=== PATIENT | male | born 1955 | race Caucasian/White ===

== ENCOUNTER 2016-10-27 18:39 | Emergency (ER) | payer OTHER ==
[~2016-10-27] VITALS: Ht 182.9 cm; Wt 99.8 kg
[~2016-10-27 18:39] MED LIST: ASPI1TAB17 PO; GLUCOSAMINE 1500 MG PO; LISI20TA PO; LOVAZA 1 GM PO; NAPR-243 PO; OXYC-12 PO
[2016-10-27] MEDS ORDERED: ATOR20TA66 (20:04)
[2016-10-27] MEDS ORDERED: METO-333 (20:04)
--- NOTE | 2016-10-27 20:05 | ED GI ---
General Chief Complaint: Abdominal/GI Problems Stated Complaint: CONSTIPATED,HEMROID ISSUES Nursing Triage Note: PT TO ED 7, REPORTS HE BELIEVES HE'S CONSTIPATED ET HIS HEMORRHOIDS ARE "LEAKING". STATES HIS LAST BM WAS YESTERDAY BUT SINCE HAS HAD "LEAKING". REPORTS SIMILAR EVENT LAST FALL ET WAS TOLD BY HIS PCP IT WAS R/T HEMORRHOIDS. NO OTHER C/O VOICED Sepsis Screen: No Definite Risk Source of Information: Patient Exam Limitations: No Limitations History of Present Illness Time Seen By Provider: 20:03 Initial Comments To ER with reports of fecal incontinence that began this morning. He's had or diapers today due to leakage of liquid bowel. He has suprapubic abdominal pain and a bit of rectal pain and pressure. Has a history of hemorrhoids and he believes these are "leaking". Also states that he feels the need to urinate but is unable to do so if he is sitting down. He must stand up or to urinate. He's had no fevers or chills. He does have nausea but no vomiting. Timing/Duration: 12-24 Hours Severity/Quality: Moderate Location: Suprapubic Radiation: No Radiation Activities at Onset: None Associated Symptoms: Denies Symptoms Allergies and Home Medications Allergies Coded Allergies: Tetanus (Verified Allergy, Unknown, 08/26/07) Home Medications Atorvastatin Calcium 20 Mg Tablet, #90 (Reported) Lisinopril 20 Mg Tablet, 20 MG PO DAILY, (Reported) Metoprolol Tartrate 25 Mg Tablet, #60 (Reported) Naproxen 500 Mg Tablet, 500 MG PO BID, (Reported) Review of Systems Constitutional: see HPI EENTM: No Symptoms Reported Respiratory: No Symptoms Reported Cardiovascular: No Symptoms Reported Gastrointestinal: See HPI, Abdominal Pain, Diarrhea, Denies Nausea Genitourinary: See HPI Musculoskeletal: no symptoms reported Skin: no symptoms reported Psychiatric/Neurological: No Symptoms Reported Past Ifbqske-Spmzdu-Ghcyuy Hx Patient Social History Alcohol Use: Denies Use Recreational Drug Use: No Smoking Status: Never a Smoker 2nd Hand Smoke Exposure: No Recent Foreign Travel: No Contact w/Someone Who Travel: No Recent Infectious Disease Expo: No Recent Hopitalizations: No Surgeries HX Surgeries: Yes (BILATERAL TOTAL KNEE REPLACEMENT) Surgeries: Orthopedic Respiratory Hx Respiratory Disorders: No Cardiovascular Hx Cardiac Disorders: Yes Cardiac Disorders: Hypertension Neurological Hx Neurological Disorders: No Reproductive System Hx Reproductive Disorders: No Genitourinary Hx Genitourinary Disorders: No Gastrointestinal Hx Gastrointestinal Disorders: No Musculoskeletal Hx Musculoskeletal Disorders: Yes (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, ARTHRITIS) Endocrine Hx Endocrine Disorders: No HEENT HX ENT Disorders: No Psychosocial Hx Psychiatric Problems: No Blood Transfusions Hx Blood Disorders: No Physical Exam Vital Signs VS - Last 72 Hours, by Label 10/27/16 19:50 Temp 98.4 Pulse 98 Resp 20 B/P (MAP) 137/79 Pulse Ox 99 O2 Delivery Room Air Capillary Refill : Less Than 3 Seconds General Appearance: WD/WN, no apparent distress HEENT: PERRL/EOMI, normal ENT inspection Neck: non-tender, full range of motion Respiratory: no respiratory distress, no accessory muscle use Gastrointestinal: normal bowel sounds, non tender, soft Genital/Rectal: other (There are several large external hemorrhoids that appear slightly inflamed. ) Extremities: normal range of motion, non-tender, normal inspection Neurologic/Psychiatric: alert, normal mood/affect Skin: normal color, warm/dry Progress/Results/Core Measures Results/Orders Lab Results Laboratory Tests Test 10/27/16 20:13 Range/Units White Blood Count 14.9 H 4.3-11.0 10^3/uL Red Blood Count 5.25 4.35-5.85 10^6/uL Hemoglobin 15.4 13.3-17.7 G/DL Hematocrit 45 40-54 % Mean Corpuscular Volume 85 80-99 FL Mean Corpuscular Hemoglobin 29 25-34 PG Mean Corpuscular Hemoglobin Concent 35 32-36 G/DL Red Cell Distribution Width 12.9 10.0-14.5 % Platelet Count 311 130-400 10^3/uL Mean Platelet Volume 9.3 7.4-10.4 FL Neutrophils (%) (Auto) 86 H 42-75 % Lymphocytes (%) (Auto) 7 L 12-44 % Monocytes (%) (Auto) 7 0-12 % Eosinophils (%) (Auto) 0 0-10 % Basophils (%) (Auto) 0 0-10 % Neutrophils # (Auto) 12.8 H 1.8-7.8 X 10^3 Lymphocytes # (Auto) 1.1 1.0-4.0 X 10^3 Monocytes # (Auto) 1.0 0.0-1.0 X 10^3 Eosinophils # (Auto) 0.0 0.0-0.3 10^3/uL Basophils # (Auto) 0.0 0.0-0.1 10^3/uL Neutrophils % (Manual) 84 % Lymphocytes % (Manual) 10 % Monocytes % (Manual) 3 % Eosinophils % (Manual) 0 % Basophils % (Manual) 0 % Band Neutrophils 3 % Blood Morphology Comment NORMAL Sodium Level 139 135-145 MMOL/L Potassium Level 4.2 3.6-5.0 MMOL/L Chloride Level 107 98-107 MMOL/L Carbon Dioxide Level 22 21-32 MMOL/L Anion Gap 10 5-14 MMOL/L Blood Urea Nitrogen 20 H 7-18 MG/DL Creatinine 0.86 0.60-1.30 MG/DL Estimat Glomerular Filtration Rate > 60 BUN/Creatinine Ratio 23 Glucose Level 98 70-105 MG/DL Calcium Level 9.0 8.5-10.1 MG/DL My Orders Orders - BREA ANDRE [employer] Cbc With Automated Diff (10/27/16 19:55) Basic Metabolic Panel (10/27/16 19:55) Saline Lock/Iv-Start (10/27/16 19:55) Ct Abdomen/Pelvis W (10/27/16 19:55) Iohexol Injection (Omnipaque 350 Mg/Ml 1 (10/27/16 20:15) Ns (Ivpb) (Sodium Chloride 0.9% Ivpb Bag (10/27/16 20:15) Ua Culture If Indicated (10/27/16 20:10) Manual Differential (10/27/16 20:13) Na Phos/Na Biphos Enema (Fleet Enema Ramin (10/27/16 21:30) Lidocaine 2% (Urojet) (Xylocaine Urojet) (10/27/16 21:30) Lidocaine 2% (Urojet) (Xylocaine Urojet) (10/27/16 21:30) Medications Given in ED Current Medications Medications Dose Ordered Sig/Mark Route Start Time Stop Time Status Last Admin Dose Admin Iohexol 100 ml ONCE ONCE IV 10/27/16 20:15 10/27/16 20:16 DC 10/27/16 21:12 100 ML Sodium Chloride 100 ml ONCE ONCE IV 10/27/16 20:15 10/27/16 20:16 DC 10/27/16 21:12 80 ML Vital Signs/I&O Vital Sign - Last 12Hours 10/27/16 19:50 Temp 98.4 Pulse 98 Resp 20 B/P (MAP) 137/79 Pulse Ox 99 O2 Delivery Room Air Blood Pressure Mean: 98 Departure Impression Impression: Primary Impression: Fecal impaction in rectum Additional Impression: Inflamed external hemorrhoid Disposition: HOME, SELF-CARE Condition: Improved Departure-Patient Inst. Decision time for Depature: 21:45 Referrals: NO,LOCAL PHYSICIAN (PCP/Family) Primary Care Physician Patient Instructions: No Instuctions Given Add. Discharge Instructions: 1. Add Metamucil fiber supplement to your diet following the directions on the bottle. Alternatively he may increase your intake of fiber such as celery, salads 2. Return to ER for any concerns 3. Call Dr. Chavez tomorrow for an appointment to be seen Scripts Hydrocortisone (Anusol-Hc) 30 Gm Cream..g. 30 GM RC BID for 7 Days, TUBE Prov: BREA ANDRE APRN 10/27/16 Copy Copies To 1: DEONDRE CHAVEZ MD, PETER J APRN Oct 27, 2016 20:04
[2016-10-27] MEDS ORDERED: NS 100 ML (IVPB) BAG IV ONE (20:15)
[2016-10-27] MEDS ORDERED: IOHEXOL 350 MG/ML 100 ML (OMNIPAQUE 350) VIAL IV ONE (20:15)
[2016-10-27 20:20] LABS: BASOPHILS % (AUTO) 0 % (0-10); EOSINOPHILS % (AUTO) 0 % (0-10); LYMPHOCYTES # (AUTO) 1.1 X 10^3 (1.0-4.0); LYMPHOCYTES % (AUTO) 7 % (12-44); MEAN CORPUSCULAR HEMOGLOBIN 29 PG (25-34); MEAN CORPUSCULAR HGB CONC 35 G/DL (32-36); MEAN CORPUSCULAR VOLUME 85 FL (80-99); MEAN PLATELET VOLUME 9.3 FL (7.4-10.4); MONOCYTES % (AUTO) 7 % (0-12); NEUTROPHILS # (AUTO) 12.8 X 10^3 (1.8-7.8); NEUTROPHILS % (AUTO) 86 % (42-75); PLATELET COUNT 311 10^3/uL (130-400); RED BLOOD COUNT 5.25 10^6/uL (4.35-5.85); RED CELL DISTRIBUTION WIDTH 12.9 % (10.0-14.5); WHITE BLOOD COUNT 14.9 10^3/uL (4.3-11.0)
[2016-10-27 20:35] LABS: ANION GAP 10 MMOL/L (5-14); BLOOD UREA NITROGEN 20 MG/DL (7-18); BUN/CREATININE RATIO 23; CARBON DIOXIDE 22 MMOL/L (21-32); CHLORIDE 107 MMOL/L (98-107); CREATININE SERUM 0.86 MG/DL (0.60-1.30); GFR ESTIMATED > 60; GLUCOSE 98 MG/DL (70-105); POTASSIUM 4.2 MMOL/L (3.6-5.0); SODIUM 139 MMOL/L (135-145)
[2016-10-27 20:37] LABS: BAND NEUTROPHILS 3 %; BASOPHILS % (MANUAL) 0 %; EOSINOPHILS % (MANUAL) 0 %; LYMPHOCYTES % (MANUAL) 10 %; NEUTROPHILS % (MANUAL) 84 %
[2016-10-27] MEDS ORDERED: LIDOCAINE UROJET 2% GEL 10 ML PKG TOP ONE ×2 (21:30)
[2016-10-27] MEDS ORDERED: FLEET ENEMA ADULT 1 EA BTL PR ONE (21:30)
--- NOTE | 2016-10-27 21:30 | Diagnostic Imaging Report ---
PROCEDURE: CT abdomen and pelvis with contrast. TECHNIQUE: Multiple contiguous axial images were obtained through the abdomen and pelvis after administration of intravenous contrast. INDICATION: Abdominal pain. Diarrhea. Constipation. FINDINGS: The liver, gallbladder and bile ducts are normal. The spleen, pancreas and adrenals are normal. The kidneys, ureters and bladder are normal. No acute bowel abnormality is seen. There is no free intraperitoneal air or fluid. There is scoliosis with degenerative changes of the spine. No acute bony abnormality is seen. IMPRESSION: No acute abnormality is seen. Dictated by: Dictated on workstation # [id number]
[2016-10-27] MEDS ORDERED: HYDR30CR71 RC (21:46)
[2016-10-27 22:02] LABS: BILIRUBIN,URINE NEGATIVE (NEGATIVE); KETONES,URINE NEGATIVE (NEGATIVE); LEUKOCYTE ESTERASE ,URINE NEGATIVE (NEGATIVE); NITRITE,URINE NEGATIVE (NEGATIVE); PH,URINE 6 (5-9); PROTEIN,URINE NEGATIVE (NEGATIVE); UROBILINOGEN,URINE NORMAL (NORMAL)
[2016-10-27 22:11] LABS: WBC,URINE RARE /HPF
[2016-10-27 22:22] VITALS: BP 134/78
== END 2016-10-27 22:21 | disposition home or self-care (01) ==
LOC: EDUNIT# 18:39 → ER 18:41
DX: K56.41 Fecal impaction (principal); K64.4 Residual hemorrhoidal skin tags; I10 Essential (primary) hypertension; Z79.899 Other long term (current) drug therapy
CPT/HCPCS: 36415; 74177; 80048; 81000; 85007; 85027

== ENCOUNTER 2016-11-30 05:42 | Outpatient (CLI) | payer OTHER ==
[~2016-11-30] VITALS: Ht 185.4 cm; Wt 99.8 kg
[~2016-11-30 05:42] MED LIST changes: +ATOR20TA66 PO; +HYDR30CR71 RC; +METO-333 PO
[2016-11-30] MEDS ORDERED: ASPI-992 PO (13:40)
== END 2016-11-30 13:42 ==
LOC: PREOP 05:42
PROVIDERS: ATTEND Surgery Pediatric Surgery
DX: Z01.818 Encounter for other preprocedural examination (principal); Z12.11 Encounter for screening for malignant neoplasm of colon

== ENCOUNTER 2016-12-02 10:58 | Day surgery (SDC) | payer OTHER ==
[~2016-12-02] VITALS: Ht 185.4 cm; Wt 99.8 kg
[~2016-12-02 10:58] MED LIST changes: +ASPI-992 PO
[2016-12-02] MEDS ORDERED: LIDOCAINE JELLY 2% (XYLOCAINE) 5 ML TUBE MM PRN (11:15)
[2016-12-02] MEDS ORDERED: FLUMAZENIL (ROMAZICON) 0.1 MG/ML 5 ML VIAL INJ PRN (11:15)
[2016-12-02] MEDS ORDERED: NALOXONE 0.4 MG/ML 1 ML (NARCAN) VIAL IVP PRN (11:15)
--- NOTE | 2016-12-02 11:21 | Conscious Sedation/ASA ---
Conscious Sedation Pre-Proced Time Reviewed: 11:20 ASA Class: 2 Airway Mallampati Classification: ([place] appropriate class) I. II. III, IV Lungs Heart ASA score ASA 1: a normal healthy patient ASA 2: a patient with a mild systemic disease (mid diabetes, controlled hypertension, obesity ASA 3: a patient with a severe systemic disease that limits activity (angina , COPD, prior Myocardial infarction) ASA 4: a patient with an incapacitating disease that is a constant threat to life (CHF, renal failure) ASA 5: a moribund patient not expected to survive 24 hrs. (ruptured aneurysm) ASA 6: a declared brain patient whose organs are being harvested. For emergent operations, add the letter E after the classification Grade 2 Sedation Plan: Analgesia, Amnesia, Plan communicated to team members, Discussed options with patient/fam, Discussed risks with patient/fam Note The patient is an appropriate candidate to undergo the planned procedure, sedation, and anesthesia. The patient immediately re-assessed prior to indication. MARÍA ELENA MEJIAS MD December 02, 2016 11:21 am
--- NOTE | 2016-12-02 11:22 | Progress Note-Pre Operative ---
Pre-Operative Progress Note H&P Reviewed The H&P was reviewed, patient examined and no changes noted. Date H&P Reviewed: December 02, 2016 Time H&P Reviewed: 11:20 Pre-Operative Diagnosis: screening colonoscopy MARÍA ELENA MEJIAS MD December 02, 2016 11:22 am
[2016-12-02] MEDS ORDERED: ACETAMINOPHEN 325 MG TABLET/CAPLET (TYLENOL) PO PRN (11:30)
[2016-12-02] MEDS ORDERED: ONDANSETRON 4 MG/2 ML (SDV) Z0FRAN IV PRN (11:30)
[2016-12-02] MEDS ORDERED: NS IV 500 ML 500 ML IV PRN (11:30)
[2016-12-02] MEDS ORDERED: HYDROcodone/APAP 5 MG/325 MG (LORTAB) TAB PO PRN (11:30)
[2016-12-02] MEDS ORDERED: morphine INJ 10 MG/ML 1ML (SYR OR VIAL) IV PRN (11:30)
[2016-12-02 11:38] VITALS: BP 138/76
[2016-12-02] MEDS ORDERED: MIDAZOLAM 2 MG/2 ML (VERSED) VIAL ONE ×3 (13:06→13:07)
[2016-12-02] MEDS ORDERED: LIDOCAINE JELLY 2% (XYLOCAINE) 5 ML TUBE ONE (13:06)
[2016-12-02] MEDS ORDERED: fentaNYL INJECTION 100 MCG/2 ML AMP ONE ×2 (13:06)
[2016-12-02] MEDS: fentaNYL INJECTION 100 MCG/2 ML AMP IVP PRN ×2 (13:13→13:21)
[2016-12-02] MEDS: MIDAZOLAM 2 MG/2 ML (VERSED) VIAL IVP PRN ×3 (13:18→13:25)
--- NOTE | 2016-12-02 13:50 | Progress Note-Post Operative ---
Post-Operative Progess Note Surgeon (s)/Superintendent (s) Surgeon MARÍA ELENA MEJIAS MD Superintendent: none Pre-Operative Diagnosis screening colonoscopy Post-Operative Diagnosis chronic stage 2 ext and int hemorrhoids. Procedure & Operative Findings Date of Procedure 12/02/16 Procedure Performed/Findings Colonoscopy. Anesthesia Type CS Estimated Blood Loss Estimated blood loss (mL): minimal Specimens/Packing Specimens Removed none MARÍA ELENA MEJIAS MD December 02, 2016 13:50
--- NOTE | 2016-12-02 13:52 | Discharge Inst-Surgical ---
D/C Lap Instructions-KIDO New, Converted, or Re-Newed RX: RX on Chart Follow Up Appt in 10 years Activity as tolerated High Fiber Diet 25g or more per day Avoid Alcohol, Caffeine, Spicy [place] and Acid foods. Drink 64 fluid oz or more of fluids per day. Symptoms to Report: Fever over 101 degree F, Nausea/Vomiting If any problems/questions: Contact your physician or go to Emergency Room MARÍA ELENA MEJIAS MD December 02, 2016 13:52
[2016-12-02 14:10] VITALS: BP 127/79
[2016-12-02 14:35] VITALS: BP 132/87
[2016-12-02 14:40] VITALS: BP 132/87
--- NOTE | 2016-12-02 16:03 | OPERATIVE REPORT ---
DATE OF SERVICE: 12/02/2016 ATTENDING PRIMARY CARE PHYSICIAN: Dr. Chavez. PREOPERATIVE DIAGNOSIS: Screening colonoscopy. POSTOPERATIVE DIAGNOSIS: Chronic stage II external and internal hemorrhoids. The remainder of the rectum and colon were normal. PROCEDURE: Colonoscopy. SURGEON: María Elena Mejias MD ANESTHESIA: Conscious sedation. ESTIMATED BLOOD LOSS: Minimal. FINDINGS: Chronic stage II external and internal hemorrhoids, not actively edematous, nor inflamed and no bleeding. Prostate gland was palpable and appeared normal. The remainder of the rectum and colon were normal. There were no polyps or any neoplasms identified. DISPOSITION: The patient tolerated the procedure well. INDICATIONS: The patient is a 61-year-old male in need of a screening colonoscopy. He reports that he has not had a colonoscopy up to this point in his life. He reports that he does have some occasional episodes of limited amounts of small red blood per rectum after a bowel movement. He also does have a history of constipation. He also has had some issues with constipation and did have to have disimpaction in the past. DESCRIPTION OF PROCEDURE: The patient was brought to the endoscopy suite, laid in the left lateral decubitus position. After adequate IV pain and sedating medications and conscious sedation anesthesia, a digital rectal examination was performed. Mild chronic stage II external and internal hemorrhoids were identified, which were not actively edematous, nor inflamed and no bleeding. Normal sphincter tone was felt and there were no palpable masses. The prostate gland was palpable and appeared normal. The endoscope was then intubated to the anus and rectum and gently insufflated. The endoscope was then advanced to the valves of Jose of the rectum with no polyps or any neoplasms identified. The endoscope was then advanced to the sigmoid colon where no diverticulosis identified. We then proceeded through the remainder of the descending, transverse and ascending colon to the cecum. These segments were normal. There were no polyps or any neoplasms identified throughout the colon or rectum. The endoscope was then slowly withdrawn when taking a second look and suctioning of residual air with no additional findings. The patient tolerated the procedure well. We will recommend a high fiber diet with at least 30 grams of fiber per day as well as at least 64 fluid ounces of water daily to promote soft stools on a daily basis. His constipation is secondary to lack of fiber in his diet. He does not need another colonoscopy for another 10 years; however, sooner if any problems arise. Job ID: [id number] DocumentID: [id number] Dictated Date: 12/02/2016 14:02:59 Equip Tech Date: 12/02/2016 15:01:52 Dictated By: MARÍA ELENA MEJIAS MD
== END 2016-12-02 14:40 | disposition home or self-care (01) ==
LOC: ENDO 10:58
PROVIDERS: ATTEND Surgery Pediatric Surgery
DX: Z12.11 Encounter for screening for malignant neoplasm of colon (principal); K64.1 Second degree hemorrhoids; I10 Essential (primary) hypertension; E78.00 Pure hypercholesterolemia, unspecified

== ENCOUNTER 2020-08-26 08:39 | Outpatient (RCR) | payer MEDICARE, OTHER ==
[2020-07-07 13:05] VITALS: BP 162/88
[2020-07-07] MEDS: DAPTOmycin 500 MG/NS 50 ML IVPB IV SCH ×2 (14:28)
[2020-07-08] MEDS: CATHETER FLUSH 10 ML SYR IV PRN ×2 (12:06→12:42)
[2020-07-08] MEDS: DAPTOmycin 500 MG/NS 50 ML IVPB IV SCH ×2 (12:06)
[2020-07-08 13:10] VITALS: BP 160/81
[2020-07-09] MEDS: DAPTOmycin 500 MG/NS 50 ML IVPB IV SCH ×2 (10:27)
[2020-07-09] MEDS: CATHETER FLUSH 10 ML SYR IV PRN (10:28)
[2020-07-09 11:05] VITALS: BP 141/78
[2020-07-10] MEDS: DAPTOmycin 500 MG/NS 50 ML IVPB IV SCH ×2 (09:52)
[2020-07-10 10:48] VITALS: BP 138/66
[2020-07-11 09:00] VITALS: BP 145/68
[2020-07-11] MEDS: DAPTOmycin 500 MG/NS 50 ML IVPB IV SCH ×2 (09:10)
[2020-07-11] MEDS: CATHETER FLUSH 10 ML SYR IV PRN (09:11)
[2020-07-12 09:10] VITALS: BP 135/68
[2020-07-12] MEDS: DAPTOmycin 500 MG/NS 50 ML IVPB IV SCH ×2 (09:10)
[2020-07-12] MEDS: CATHETER FLUSH 10 ML SYR IV PRN (09:10)
[2020-07-13] MEDS: DAPTOmycin 500 MG/NS 50 ML IVPB IV SCH ×2 (09:13)
[2020-07-13] MEDS: CATHETER FLUSH 10 ML SYR IV PRN (09:14)
[2020-07-13 09:18] VITALS: BP 131/71
[2020-07-14 08:45] VITALS: BP 141/82
[2020-07-14] MEDS: DAPTOmycin 500 MG/NS 50 ML IVPB IV SCH ×2 (09:02)
[2020-07-15 09:15] VITALS: BP 138/69
[2020-07-15] MEDS: DAPTOmycin 500 MG/NS 50 ML IVPB IV SCH ×2 (09:45)
[2020-07-15] MEDS: CATHETER FLUSH 10 ML SYR IV PRN (09:45)
[2020-07-16] MEDS: CATHETER FLUSH 10 ML SYR IV PRN (09:31)
[2020-07-16] MEDS: DAPTOmycin 500 MG/NS 50 ML IVPB IV SCH ×2 (09:31)
[2020-07-16 09:36] VITALS: BP 149/76
[2020-07-17 09:00] VITALS: BP 145/101
[2020-07-17] MEDS: DAPTOmycin 500 MG/NS 50 ML IVPB IV SCH ×2 (09:36)
[2020-07-17] MEDS: CATHETER FLUSH 10 ML SYR IV PRN (09:36)
[2020-07-18 09:00] VITALS: BP 151/88
[2020-07-18] MEDS: DAPTOmycin 500 MG/NS 50 ML IVPB IV SCH ×2 (09:17)
[2020-07-19 09:00] VITALS: BP 153/85
[2020-07-19] MEDS: DAPTOmycin 500 MG/NS 50 ML IVPB IV SCH ×2 (09:16)
[2020-07-20 09:14] VITALS: BP 142/82
[2020-07-20] MEDS: CATHETER FLUSH 10 ML SYR IV PRN (09:44)
[2020-07-20] MEDS: DAPTOmycin 500 MG/NS 50 ML IVPB IV SCH ×2 (09:44)
[2020-07-21 09:05] VITALS: BP 138/81
[2020-07-21] MEDS: CATHETER FLUSH 10 ML SYR IV PRN (09:33)
[2020-07-21] MEDS: DAPTOmycin 500 MG/NS 50 ML IVPB IV SCH ×2 (09:33)
[2020-07-22 09:00] VITALS: BP 147/84
[2020-07-22] MEDS: DAPTOmycin 500 MG/NS 50 ML IVPB IV SCH ×2 (09:56)
[2020-07-23 09:00] VITALS: BP 156/75
[2020-07-23] MEDS: DAPTOmycin 500 MG/NS 50 ML IVPB IV SCH ×2 (09:28)
--- NOTE | 2020-07-23 10:22 | Diagnostic Imaging Report ---
HISTORY: Confirm right PICC line placement. TECHNIQUE: Frontal view of the chest. COMPARISON: 11/27/2012. FINDINGS: The tip of the right PICC line projects over the upper SVC. Lung volumes are large. No focal consolidation is seen. There is no pleural effusion or pneumothorax. The cardiac silhouette is normal in size. IMPRESSION: 1. The tip of the right PICC line projects over the upper SVC. Dictated by: Dictated on workstation # [id number]
[2020-07-24 07:05] VITALS: BP 141/77
[2020-07-24] MEDS: ALTEPLASE 2 MG (CATHFLO) IV SCH ×2 (07:19→07:20)
[2020-07-24] MEDS: DAPTOmycin 500 MG/NS 50 ML IVPB IV SCH ×2 (08:42)
[2020-07-25 09:00] VITALS: BP 137/71
[2020-07-25] MEDS: DAPTOmycin 500 MG/NS 50 ML IVPB IV SCH ×2 (09:14)
[2020-07-26] MEDS: CATHETER FLUSH 10 ML SYR IV PRN (09:39)
[2020-07-26] MEDS: DAPTOmycin 500 MG/NS 50 ML IVPB IV SCH ×2 (09:39)
[2020-07-26 09:43] VITALS: BP 128/81
[2020-07-27] MEDS: DAPTOmycin 500 MG/NS 50 ML IVPB IV SCH ×2 (08:57)
[2020-07-27 09:06] VITALS: BP 156/79
[2020-07-28] MEDS: CATHETER FLUSH 10 ML SYR IV PRN (08:55)
[2020-07-28] MEDS: DAPTOmycin 500 MG/NS 50 ML IVPB IV SCH ×2 (08:55)
[2020-07-28 09:35] VITALS: BP 148/82
[2020-07-29 09:00] VITALS: BP 143/81
[2020-07-29] MEDS: DAPTOmycin 500 MG/NS 50 ML IVPB IV SCH ×2 (09:07)
[2020-07-30] MEDS: DAPTOmycin 500 MG/NS 50 ML IVPB IV SCH ×2 (09:07)
[2020-07-30] MEDS: CATHETER FLUSH 10 ML SYR IV PRN (09:07)
[2020-07-30 09:12] VITALS: BP 160/87
[2020-07-31] MEDS: DAPTOmycin 500 MG/NS 50 ML IVPB IV SCH ×2 (09:12)
[2020-07-31 09:55] VITALS: BP 136/81
[2020-08-01] MEDS: CATHETER FLUSH 10 ML SYR IV PRN (09:35)
[2020-08-01] MEDS: DAPTOmycin 500 MG/NS 50 ML IVPB IV SCH ×2 (09:35)
[2020-08-01 10:10] VITALS: BP 149/78
[2020-08-02] MEDS: DAPTOmycin 500 MG/NS 50 ML IVPB IV SCH ×2 (09:38)
[2020-08-02] MEDS: CATHETER FLUSH 10 ML SYR IV PRN (09:39)
[2020-08-02 10:14] VITALS: BP 161/85
[2020-08-03 09:00] VITALS: BP 141/84
[2020-08-03] MEDS: CATHETER FLUSH 10 ML SYR IV PRN (09:20)
[2020-08-03] MEDS: DAPTOmycin 500 MG/NS 50 ML IVPB IV SCH ×2 (09:20)
[2020-08-04] MEDS: CATHETER FLUSH 10 ML SYR IV PRN ×3 (09:01→09:50)
[2020-08-04] MEDS: DAPTOmycin 500 MG/NS 50 ML IVPB IV SCH ×2 (09:07)
[2020-08-04 09:52] VITALS: BP 144/91
[2020-08-05] MEDS: DAPTOmycin 500 MG/NS 50 ML IVPB IV SCH ×2 (08:05)
[2020-08-05 08:18] VITALS: BP 150/90
[2020-08-06] MEDS: DAPTOmycin 500 MG/NS 50 ML IVPB IV SCH ×2 (09:05)
[2020-08-06 09:17] VITALS: BP 147/88
[2020-08-07 08:45] VITALS: BP 146/81
[2020-08-07] MEDS: DAPTOmycin 500 MG/NS 50 ML IVPB IV SCH ×2 (09:03)
[2020-08-08] MEDS: CATHETER FLUSH 10 ML SYR IV PRN (09:50)
[2020-08-08] MEDS: DAPTOmycin 500 MG/NS 50 ML IVPB IV SCH ×2 (09:54)
[2020-08-08 10:25] VITALS: BP 144/79
[2020-08-09] MEDS: CATHETER FLUSH 10 ML SYR IV PRN (09:00)
[2020-08-09] MEDS: DAPTOmycin 500 MG/NS 50 ML IVPB IV SCH ×2 (09:02)
[2020-08-09 09:35] VITALS: BP 150/84
[2020-08-10] MEDS: CATHETER FLUSH 10 ML SYR IV PRN (09:04)
[2020-08-10] MEDS: DAPTOmycin 500 MG/NS 50 ML IVPB IV SCH ×2 (09:04)
[2020-08-10 09:14] VITALS: BP 140/80
[2020-08-11] MEDS: CATHETER FLUSH 10 ML SYR IV PRN (08:55)
[2020-08-11] MEDS: DAPTOmycin 500 MG/NS 50 ML IVPB IV SCH ×2 (08:55)
[2020-08-11 09:06] VITALS: BP 151/81
[2020-08-12] MEDS: DAPTOmycin 500 MG/NS 50 ML IVPB IV SCH ×2 (09:14)
[2020-08-12] MEDS: CATHETER FLUSH 10 ML SYR IV PRN (09:15)
[2020-08-12 09:50] VITALS: BP 152/79
[2020-08-13] MEDS: DAPTOmycin 500 MG/NS 50 ML IVPB IV SCH ×2 (08:47)
[2020-08-13] MEDS: CATHETER FLUSH 10 ML SYR IV PRN (08:48)
[2020-08-13 09:30] VITALS: BP 158/83
[2020-08-14] MEDS: DAPTOmycin 500 MG/NS 50 ML IVPB IV SCH ×2 (09:05)
[2020-08-14 09:35] VITALS: BP 161/86
[2020-08-15] MEDS: DAPTOmycin 500 MG/NS 50 ML IVPB IV SCH ×2 (09:02)
[2020-08-15 09:20] VITALS: BP 163/97
[2020-08-16] MEDS: DAPTOmycin 500 MG/NS 50 ML IVPB IV SCH ×2 (09:00)
[2020-08-16 09:20] VITALS: BP 151/83
[2020-08-17] MEDS: DAPTOmycin 500 MG/NS 50 ML IVPB IV SCH ×2 (08:58)
[2020-08-17 09:35] VITALS: BP 162/90
[2020-08-19 09:24] VITALS: BP 171/90
[~2020-08-26] VITALS: Ht 182.9 cm; Wt 103.0 kg
[~2020-08-26 08:39] MED LIST changes: +ACET-2267 PO; +ASPI-789 PO; +ASPI81TA16 PO; +DOCU100C37 PO; +LISI40TA9 PO; +MULT1TAB63 PO; +OXC5T PO; +RIFA300C3 PO; +RIVA10TA PO; +WATER (STERILE) FOR INJECTION 10 ML ONE
[2020-08-26 09:05] VITALS: BP 160/87
== END 2020-09-01 08:53 | disposition home or self-care (01) ==
LOC: SDC 08:39
PROVIDERS: ATTEND Physician Assistant
DX: M00.869 Arthritis due to other bacteria, unspecified knee (principal)
CPT/HCPCS: 71045; 76937; 96365; 96366; 99211

== ENCOUNTER → 2020-09-22 | Outpatient (CLI) | payer MEDICARE, OTHER ==
[~2020-09-22] MED LIST changes: -WATER (STERILE) FOR INJECTION 10 ML ONE
--- NOTE | 2020-09-22 14:53 | Diagnostic Imaging Report ---
PROCEDURE: US right lower extremity venous. TECHNIQUE: Multiple real-time grayscale images were obtained over the right lower extremity in various projections. Additional spectral analysis and color Doppler duplex images were also obtained. INDICATION: Right leg pain and swelling. FINDINGS: The right common femoral vein is widely patent. The upper and mid superficial femoral veins are patent. There is thrombus identified in the lower superficial femoral vein extending into the popliteal vein as well as the peroneal veins distally. No fluid collection or mass is detected IMPRESSION: Right lower extremity DVT, as described. Dictated by: Dictated on workstation # [id number]
== END ==
LOC: RAD 13:32
PROVIDERS: ATTEND Orthopaedic Surgery
DX: I82.411 Acute embolism and thrombosis of right femoral vein (principal)

== ENCOUNTER 2020-09-30 09:06 | Emergency (ER) | payer MEDICARE, OTHER ==
[~2020-09-30] VITALS: Ht 182 cm; Wt 97.0 kg
[2020-09-30] MEDS ORDERED: CEPH500T PO (09:41)
--- NOTE | 2020-09-30 10:05 | ED Lower Extremity ---
General Chief Complaint: Lower Extremity Stated Complaint: R LEG HOT TO TOUCH/RED Nursing Triage Note: PT HAD AN INFECTION IN RT KNEE, HX OF KNEE REPLACEMENT 7 YRS AGO, RECENTLY FOUND OUT HE HAS A BLOOD CLOT IN RT LEG, US DONE HERE, KNEE AND LEG WARM TO THE TOUCH AND COLOR "LOOKS DIFFERENT," DENIES PAIN. DR. WILLIAMSON TOLD HIM TO COME HERE. PT WENT IN TO THE HOSPITAL IN [place] ON 06/27/20 AND HAD SURGERY THE TO HAVE HIS KNEE INFECTION CLEANED OUT, SECOND SURGERY ON 07/04/20 AND TOOK OUT ABX BEEDS AND FLUSHED IT AGAIN AND GOT OUT OF THE HOSP 07/06/20. DAILY ABX INFUSIONS DONE HERE AT . Nursing Sepsis Screen: No Definite Risk Source: patient, family, old records Exam Limitations: no limitations History of Present Illness Date Seen by Provider: Sep 30, 2020 Time Seen by Provider: 09:35 Initial Comments This 65-year-old gentleman presents to the emergency room with concerns about worsening symptoms of right lower extremity edema and discoloration after recently being diagnosed with DVT on September 22. He is presently on Xarelto. T afua he noticed increased swelling and a purplish red discoloration of the right lower extremity from the ankle up to the knee. Patient had a complicated hospitalization a few months ago when his right knee prosthetic became infected and he became septic. His symptoms have improved significantly now that he has been lying in the exam bed for a while. The increased swelling and d iscoloration was noted after he had been up on his feet for a while this morning. He denies any increased pain, calor, or knee effusion. Allergies and Home Medications Allergies Coded Allergies: Tetanus Vaccines and Toxoid (Verified Allergy, Unknown, 08/26/07) Home Medications Acetaminophen 500 Mg Tablet, 1-2 TAB PO Q6H PRN for PAIN-MILD (1-4), (Reported) Aspirin 81 Mg Tablet.dr, 81 MG PO DAILY, (Reported) Aspirin/Acetaminophen/Caffeine 1 Each Tablet, 1 EACH PO QID PRN for Headache, (Reported) Atorvastatin Calcium 20 Mg Tablet, 20 MG PO HS, (Reported) Cephalexin 500 Mg Tablet, 500 MG PO DAILY, (Reported) Docusate Sodium 100 Mg Capsule, 100 MG PO BID, (Reported) Lisinopril 40 Mg Tablet, 40 MG PO DAILY, (Reported) Metoprolol Tartrate 25 Mg Tablet, 25 MG PO BID, (Reported) Multivits,Ca,Minerals/Iron/FA 1 Each Tablet, 1 EACH PO DAILY, (Reported) Rivaroxaban 10 Mg Tablet, 15 MG PO BID, (Reported) Patient Home Medication List Home Medication List Reviewed: Yes Review of Systems Constitutional: no symptoms reported Respiratory: no symptoms reported Cardiovascular: no symptoms reported Musculoskeletal: see HPI Skin: see HPI Past Preepzd-Wamqzv-Ywgyws Hx Past Med/Social Hx: Reviewed Nursing Past Med/Soc Hx Patient Social History Alcohol Use: Denies Use Smoking Status: Never a Smoker 2nd Hand Smoke Exposure: No Recent Infectious Disease Expo: No Recent Hopitalizations: Yes (06/2020) Seasonal Allergies Seasonal Allergies: Yes Past Medical History Surgeries: Yes (BILATERAL TOTAL KNEE REPLACEMENT, ING HERNIA) Joint Replacement, Orthopedic Respiratory: No Cardiac: Yes Deep Vein Thrombosis, Hypertension Neurological: No Reproductive Disorders: No Genitourinary: No Gastrointestinal: No Musculoskeletal: Yes (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, ARTHRITIS) Arthritis Endocrine: No Cancer: No Psychosocial: No Integumentary: No Blood Disorders: No Physical Exam Vital Signs Vital Signs - First Documented 09/30/20 09:16 Temp 35.7 Pulse 76 Resp 18 B/P (MAP) 149/95 (113) Pulse Ox 96 O2 Delivery Room Air Capillary Refill : Less Than 3 Seconds Height, Weight, BMI Height: 6'1.00" Weight: 220lbs. 0.0oz. [id number]; 29.00 BMI Method:Stated General Appearance: WD/WN, no apparent distress Cardiovascular: regular rate, rhythm, no murmur Respiratory: lungs clear, normal breath sounds, no respiratory distress Legs: right leg soft tissue tenderness, right leg swelling, right leg other (Mild calor) Knees: right knee non-tender, right knee swelling Ankles: right ankle non-tender, right ankle normal inspection Neurologic/Psychiatric: no motor/sensory deficits, alert, normal mood/affect, oriented x 3 Skin: warm/dry, other (Minimal erythema and warmth around the right knee and lower leg) Progress/Results/Core Measures Results/Orders Vital Signs/I&O 09/30/20 09/30/20 09:16 10:22 Temp 35.7 35.7 Pulse 76 76 Resp 18 18 B/P (MAP) 149/95 (113) 149/95 (113) Pulse Ox 96 96 O2 Delivery Room Air Room Air Blood Pressure Mean: 113 Progress Progress Note : Progress Note Leg symptoms are now much improved after elevation for a while. He has no significant increase in heat, tenderness, or swelling at this moment. We discussed the potential for waxing and waning symptoms of DVT based on position, hydration status, time of day, level of activity, etc. See discharge instructions for further discussion. Departure Impression Primary Impression: Right leg DVT Qualified Codes: I82.401 - Acute embolism and thrombosis of unspecified deep veins of right lower extremity Disposition: HOME, SELF-CARE Condition: Stable Departure-Patient Inst. Decision time for Depature: 09:50 Referrals: LINWOOD WILLIAMSON MD (PCP/Family) Primary Care Physician Patient Instructions: Deep Vein Thrombosis (Blood Clots in the Legs) (DC) Add. Discharge Instructions: Expect fluctuating symptoms of swelling, pain, warmth, and color change in the right lower leg from the knee down depending on level of activity, hydration status, and position. Treat increasing symptoms with elevation and rest. If you have persistent symptoms that do not improve with elevation and rest, return to care. Also return to care if you develop additional associated symptoms such as fever, chills, significant fatigue, or symptoms isolated to the knee such as redness, heat, swelling, or increased pain. Continue taking your Eliquis continuously. Call with questions or concerns. Return to care if you have any other concerns that need urgent attention. All discharge instructions reviewed with patient and/or family. Voiced understanding. URIEL ZAPIEN MD Sep 30, 2020 10:05
[2020-09-30 10:22] VITALS: BP 149/95
== END 2020-09-30 10:21 | disposition home or self-care (01) ==
LOC: EDUNIT# 09:06 → ER 09:08
DX: I82.401 Acute embolism and thrombosis of unspecified deep veins of right lower extremity (principal); I10 Essential (primary) hypertension; Z88.7 Allergy status to serum and vaccine; Z79.82 Long term (current) use of aspirin; Z79.01 Long term (current) use of anticoagulants
CPT/HCPCS: 99283

== ENCOUNTER → 2020-10-06 | Outpatient (CLI) | payer MEDICARE, OTHER ==
[~2020-10-06] MED LIST changes: +CEPH500T PO
--- NOTE | 2020-10-06 11:00 | Diagnostic Imaging Report ---
PROCEDURE: US right lower extremity venous. TECHNIQUE: Multiple real-time grayscale images were obtained over the right lower extremity in various projections. Additional spectral analysis and color Doppler duplex images were also obtained. INDICATION: DVT. Compared with study 09/22/2020. FINDINGS: Common femoral, the proximal and middle thirds of the superficial femoral and the profunda remain patent. Commencing at the lower 3rd of the superficial femoral vein, there is now incompletely occlusive clot. There is occlusive clot in the popliteal vein. Previously clot extended into the calf veins this portion has resolved. IMPRESSION: Improvements but incomplete resolution of left lower extremity DVT. Reduction in clot burden in the distal superficial femoral vein and resolution of calf thrombus. Occlusive clot in the popliteal vein remains. No adverse development. Dictated by: Dictated on workstation # [id number]
== END ==
LOC: RAD 09:00
PROVIDERS: ATTEND Family Medicine
DX: I82.401 Acute embolism and thrombosis of unspecified deep veins of right lower extremity (principal)

== ENCOUNTER → 2020-11-24 | Outpatient (CLI) | payer MEDICARE, OTHER ==
--- NOTE | 2020-11-24 09:43 | Diagnostic Imaging Report ---
INDICATION: Right leg deep venous thrombosis, follow-up TECHNIQUE: Multiple real-time grayscale images were obtained over the right lower extremity in various projections, bilaterally. Additional duplex Doppler and color Doppler images were also obtained. CORRELATION STUDY: 10/06/2020, 09/22/2020 FINDINGS: Previous imaging demonstrated residual occlusive clot in the right popliteal vein and peripheral femoral vein of the thigh extending centrally into the mid aspect of femoral vein. On current study, there appears to be adverse worsening of the clot. Clot now involves the veins within the calf extending from the ankle through the calf into the popliteal vein and with partial occlusive clot extending into the mid femoral vein of the thigh. No soft tissue fluid collection. IMPRESSION: 1. There appears to be interval worsening and extension of the clot. Clot now originates within the lower leg extending through the calf, popliteal artery and on into the mid femoral vein of the thigh. Dictated by: Dictated on workstation # [id number]
== END ==
LOC: RAD 08:00
PROVIDERS: ATTEND Family Medicine
DX: I82.531 Chronic embolism and thrombosis of right popliteal vein (principal); I82.511 Chronic embolism and thrombosis of right femoral vein

== ENCOUNTER 2021-02-25 07:56 | Outpatient (RCR) | payer MEDICARE, OTHER ==
[2021-01-21 10:00] VITALS: BP 132/69
[2021-01-21] MEDS: DAPTOMYCIN IV SCH ×2 (10:20)
[2021-01-21] MEDS: [UNRECOGNIZED DRUG - OTHER] IV SCH ×2 (10:20)
[2021-01-22] MEDS: [UNRECOGNIZED DRUG - OTHER] IV SCH ×2 (10:34)
[2021-01-22] MEDS: DAPTOMYCIN IV SCH ×2 (10:34)
[2021-01-22 11:15] VITALS: BP 125/69
[2021-01-23] MEDS: [UNRECOGNIZED DRUG - OTHER] IV SCH ×2 (09:12)
[2021-01-23] MEDS: DAPTOMYCIN IV SCH ×2 (09:12)
[2021-01-23 09:45] VITALS: BP 117/63
[2021-01-24] MEDS: DAPTOMYCIN IV SCH ×2 (09:06)
[2021-01-24] MEDS: [UNRECOGNIZED DRUG - OTHER] IV SCH ×2 (09:06)
[2021-01-24 09:40] VITALS: BP 120/68
[2021-01-25 09:51] VITALS: BP 139/70
[2021-01-25] MEDS: [UNRECOGNIZED DRUG - OTHER] IV SCH ×2 (09:52)
[2021-01-25] MEDS: DAPTOMYCIN IV SCH ×2 (09:52)
[2021-01-26 09:38] VITALS: BP 124/67
[2021-01-26 09:42] LABS: BASOPHILS # (AUTO) 0.1 10^3/uL (0.0-0.1); BASOPHILS % (AUTO) 1 % (0-10); EOSINOPHILS # (AUTO) 0.5 10^3/uL (0.0-0.3); EOSINOPHILS % (AUTO) 6 % (0-10); HEMATOCRIT 35 % (40-54); HEMOGLOBIN 11.4 g/dL (13.3-17.7); LYMPHOCYTES # (AUTO) 1.5 10^3/uL (1.0-4.0); LYMPHOCYTES % (AUTO) 17 % (12-44); MEAN CORPUSCULAR HEMOGLOBIN 27 pg (25-34); MEAN CORPUSCULAR HGB CONC 32 g/dL (32-36); MEAN CORPUSCULAR VOLUME 83 fL (80-99); MEAN PLATELET VOLUME 8.8 fL (9.0-12.2); MONOCYTES # (AUTO) 0.6 10^3/uL (0.0-1.0); MONOCYTES % (AUTO) 8 % (0-12); NEUTROPHILS # (AUTO) 5.8 10^3/uL (1.8-7.8); NEUTROPHILS % (AUTO) 68 % (42-75); PLATELET COUNT 434 10^3/uL (130-400); WHITE BLOOD COUNT 8.5 10^3/uL (4.3-11.0)
[2021-01-26] MEDS: [UNRECOGNIZED DRUG - OTHER] IV SCH ×2 (09:50)
[2021-01-26] MEDS: DAPTOMYCIN IV SCH ×2 (09:50)
[2021-01-26 10:03] LABS: ALANINE AMINOTRANSFERASE 29 U/L (0-55); ALBUMIN 3.9 GM/DL (3.2-4.5); ALKALINE PHOSPHATASE 135 U/L (40-136); BILIRUBIN,TOTAL 0.4 MG/DL (0.1-1.0); BUN/CREATININE RATIO 15; CALCIUM 9.5 MG/DL (8.5-10.1); CARBON DIOXIDE 23 MMOL/L (21-32); CHLORIDE 101 MMOL/L (98-107); CREATINE KINASE 101 U/L (30-200); CREATININE SERUM 0.96 MG/DL (0.60-1.30); ERYTHROCYTE SEDIMENTATION RATE 41 MM/HR (0-30); GFR ESTIMATED > 60; GLUCOSE 138 MG/DL (70-105); POTASSIUM 3.9 MMOL/L (3.6-5.0); SODIUM 136 MMOL/L (135-145); TOTAL PROTEIN 7.6 GM/DL (6.4-8.2)
[2021-01-27 08:55] VITALS: BP 121/67
[2021-01-27] MEDS: DAPTOMYCIN IV SCH ×2 (09:07)
[2021-01-27] MEDS: [UNRECOGNIZED DRUG - OTHER] IV SCH ×2 (09:07)
[2021-01-28] MEDS: [UNRECOGNIZED DRUG - OTHER] IV SCH ×2 (09:32)
[2021-01-28] MEDS: DAPTOMYCIN IV SCH ×2 (09:32)
[2021-01-28 10:10] VITALS: BP 120/66
[2021-01-29 09:10] VITALS: BP 111/65
[2021-01-29] MEDS: [UNRECOGNIZED DRUG - OTHER] IV SCH ×2 (09:24)
[2021-01-29] MEDS: DAPTOMYCIN IV SCH ×2 (09:24)
[2021-01-30 09:25] VITALS: BP 111/64
[2021-01-30] MEDS: [UNRECOGNIZED DRUG - OTHER] IV SCH ×2 (09:29)
[2021-01-30] MEDS: DAPTOMYCIN IV SCH ×2 (09:29)
[2021-01-31 09:25] VITALS: BP 114/68
[2021-01-31] MEDS: [UNRECOGNIZED DRUG - OTHER] IV SCH ×2 (09:33)
[2021-01-31] MEDS: DAPTOMYCIN IV SCH ×2 (09:33)
[2021-02-01] MEDS: [UNRECOGNIZED DRUG - OTHER] IV SCH ×2 (09:31)
[2021-02-01] MEDS: DAPTOMYCIN IV SCH ×2 (09:31)
[2021-02-01 10:10] VITALS: BP 120/77
[2021-02-02] MEDS: [UNRECOGNIZED DRUG - OTHER] IV SCH ×2 (09:13)
[2021-02-02] MEDS: DAPTOMYCIN IV SCH ×2 (09:13)
[2021-02-02 09:25] LABS: HEMATOCRIT 35 % (40-54); HEMOGLOBIN 11.4 g/dL (13.3-17.7); MEAN CORPUSCULAR HEMOGLOBIN 27 pg (25-34); MEAN CORPUSCULAR HGB CONC 33 g/dL (32-36); MEAN CORPUSCULAR VOLUME 84 fL (80-99); MEAN PLATELET VOLUME 8.8 fL (9.0-12.2); PLATELET COUNT 373 10^3/uL (130-400); WHITE BLOOD COUNT 5.1 10^3/uL (4.3-11.0)
[2021-02-02 09:44] LABS: BILIRUBIN,TOTAL 0.4 MG/DL (0.1-1.0); CALCIUM 9.4 MG/DL (8.5-10.1); CREATININE SERUM 0.83 MG/DL (0.60-1.30); ERYTHROCYTE SEDIMENTATION RATE 32 MM/HR (0-30); TOTAL PROTEIN 7.8 GM/DL (6.4-8.2)
[2021-02-02 10:10] VITALS: BP 134/71
[2021-02-03] MEDS: [UNRECOGNIZED DRUG - OTHER] IV SCH ×2 (09:11)
[2021-02-03] MEDS: DAPTOMYCIN IV SCH ×2 (09:11)
[2021-02-03 09:12] VITALS: BP 127/73
[2021-02-04 09:10] VITALS: BP 125/66
[2021-02-05] MEDS: [UNRECOGNIZED DRUG - OTHER] IV SCH ×6 (09:15→09:23)
[2021-02-05] MEDS: DAPTOMYCIN IV SCH ×6 (09:15→09:23)
[2021-02-05 10:10] VITALS: BP 108/63
[2021-02-06] MEDS: [UNRECOGNIZED DRUG - OTHER] IV SCH ×2 (09:33)
[2021-02-06] MEDS: DAPTOMYCIN IV SCH ×2 (09:33)
[2021-02-06 09:39] VITALS: BP 133/71
[2021-02-07 09:10] VITALS: BP 130/74
[2021-02-07] MEDS: DAPTOMYCIN IV SCH ×2 (09:39)
[2021-02-07] MEDS: [UNRECOGNIZED DRUG - OTHER] IV SCH ×2 (09:39)
[2021-02-08] MEDS: [UNRECOGNIZED DRUG - OTHER] IV SCH ×4 (09:05)
[2021-02-08] MEDS: DAPTOMYCIN IV SCH ×4 (09:05)
[2021-02-08 09:50] VITALS: BP 129/80
[2021-02-09 09:00] VITALS: BP 117/74
[2021-02-09] MEDS: DAPTOMYCIN IV SCH ×2 (09:12)
[2021-02-09] MEDS: [UNRECOGNIZED DRUG - OTHER] IV SCH ×2 (09:12)
[2021-02-09 09:37] LABS: HEMATOCRIT 36 % (40-54); HEMOGLOBIN 11.6 g/dL (13.3-17.7); MEAN CORPUSCULAR HEMOGLOBIN 27 pg (25-34); MEAN CORPUSCULAR HGB CONC 32 g/dL (32-36); MEAN CORPUSCULAR VOLUME 83 fL (80-99); MEAN PLATELET VOLUME 8.9 fL (9.0-12.2); PLATELET COUNT 361 10^3/uL (130-400); WHITE BLOOD COUNT 5.8 10^3/uL (4.3-11.0)
[2021-02-09 10:03] LABS: BILIRUBIN,TOTAL 0.5 MG/DL (0.1-1.0); CALCIUM 9.2 MG/DL (8.5-10.1); CREATININE SERUM 0.87 MG/DL (0.60-1.30); POTASSIUM 3.9 MMOL/L (3.6-5.0); TOTAL PROTEIN 7.7 GM/DL (6.4-8.2)
[2021-02-09 10:14] LABS: ERYTHROCYTE SEDIMENTATION RATE 18 MM/HR (0-30)
[2021-02-10 09:00] VITALS: BP 127/74
[2021-02-10] MEDS: DAPTOMYCIN IV SCH ×2 (09:05)
[2021-02-10] MEDS: [UNRECOGNIZED DRUG - OTHER] IV SCH ×2 (09:05)
[2021-02-11] MEDS: DAPTOMYCIN IV SCH ×2 (08:58)
[2021-02-11] MEDS: [UNRECOGNIZED DRUG - OTHER] IV SCH ×2 (08:58)
[2021-02-11 09:05] VITALS: BP 136/80
[2021-02-12 08:53] VITALS: BP 138/79
[2021-02-12] MEDS: DAPTOMYCIN IV SCH ×2 (09:47)
[2021-02-12] MEDS: [UNRECOGNIZED DRUG - OTHER] IV SCH ×2 (09:47)
[2021-02-13] MEDS: [UNRECOGNIZED DRUG - OTHER] IV SCH ×2 (09:16)
[2021-02-13] MEDS: DAPTOMYCIN IV SCH ×2 (09:16)
[2021-02-13 09:54] VITALS: BP 153/85
[2021-02-14] MEDS: [UNRECOGNIZED DRUG - OTHER] IV SCH ×2 (09:28)
[2021-02-14] MEDS: DAPTOMYCIN IV SCH ×2 (09:28)
[2021-02-14 10:00] VITALS: BP 147/79
[2021-02-15] MEDS: [UNRECOGNIZED DRUG - OTHER] IV SCH ×2 (09:04)
[2021-02-15] MEDS: DAPTOMYCIN IV SCH ×2 (09:04)
[2021-02-15 09:40] VITALS: BP 128/77
[2021-02-16 09:05] VITALS: BP 144/80
[2021-02-16] MEDS: DAPTOMYCIN IV SCH ×2 (09:12)
[2021-02-16] MEDS: [UNRECOGNIZED DRUG - OTHER] IV SCH ×2 (09:12)
[2021-02-17] MEDS: DAPTOMYCIN IV SCH ×2 (09:08)
[2021-02-17] MEDS: [UNRECOGNIZED DRUG - OTHER] IV SCH ×2 (09:08)
[2021-02-17 09:12] VITALS: BP 139/79
[2021-02-17 09:32] LABS: ALBUMIN 4.1 GM/DL (3.2-4.5); BILIRUBIN,TOTAL 0.4 MG/DL (0.1-1.0); CALCIUM 9.5 MG/DL (8.5-10.1); CREATININE SERUM 0.84 MG/DL (0.60-1.30); TOTAL PROTEIN 7.9 GM/DL (6.4-8.2)
[2021-02-18 08:50] VITALS: BP 146/78
[2021-02-18] MEDS: [UNRECOGNIZED DRUG - OTHER] IV SCH ×2 (09:30)
[2021-02-18] MEDS: DAPTOMYCIN IV SCH ×2 (09:30)
[2021-02-18 09:36] LABS: BASOPHILS # (AUTO) 0.1 10^3/uL (0.0-0.1); BASOPHILS % (AUTO) 1 % (0-10); EOSINOPHILS # (AUTO) 0.7 10^3/uL (0.0-0.3); EOSINOPHILS % (AUTO) 12 % (0-10); HEMATOCRIT 36 % (40-54); HEMOGLOBIN 11.7 g/dL (13.3-17.7); LYMPHOCYTES # (AUTO) 1.2 10^3/uL (1.0-4.0); LYMPHOCYTES % (AUTO) 22 % (12-44); MEAN CORPUSCULAR HEMOGLOBIN 27 pg (25-34); MEAN CORPUSCULAR HGB CONC 33 g/dL (32-36); MEAN CORPUSCULAR VOLUME 83 fL (80-99); MEAN PLATELET VOLUME 8.8 fL (9.0-12.2); MONOCYTES # (AUTO) 0.6 10^3/uL (0.0-1.0); MONOCYTES % (AUTO) 11 % (0-12); NEUTROPHILS # (AUTO) 2.9 10^3/uL (1.8-7.8); NEUTROPHILS % (AUTO) 54 % (42-75); PLATELET COUNT 341 10^3/uL (130-400); WHITE BLOOD COUNT 5.4 10^3/uL (4.3-11.0)
[2021-02-18 10:07] LABS: EOSINOPHILS % (MANUAL) 11 %; LYMPHOCYTES % (MANUAL) 24 %; MONOCYTES % (MANUAL) 10 %; NEUTROPHILS % (MANUAL) 55 %; RBC MORPH NORMAL
[2021-02-18 10:08] LABS: ERYTHROCYTE SEDIMENTATION RATE 16 MM/HR (0-30)
[2021-02-19] MEDS: [UNRECOGNIZED DRUG - OTHER] IV SCH ×2 (09:20)
[2021-02-19] MEDS: DAPTOMYCIN IV SCH ×2 (09:20)
[2021-02-19 09:25] VITALS: BP 143/82
[2021-02-20] MEDS: DAPTOMYCIN IV SCH ×2 (09:47)
[2021-02-20] MEDS: [UNRECOGNIZED DRUG - OTHER] IV SCH ×2 (09:47)
[2021-02-20 10:01] VITALS: BP 144/77
[2021-02-21] MEDS: [UNRECOGNIZED DRUG - OTHER] IV SCH ×2 (09:07)
[2021-02-21] MEDS: DAPTOMYCIN IV SCH ×2 (09:07)
[2021-02-21 09:17] VITALS: BP 157/81
[2021-02-22] MEDS: [UNRECOGNIZED DRUG - OTHER] IV SCH ×2 (09:24)
[2021-02-22] MEDS: DAPTOMYCIN IV SCH ×2 (09:24)
[2021-02-22 10:00] VITALS: BP_SYST 143; BP_SYST 147; BP_DIAS 82
[2021-02-22 10:22] LABS: BASOPHILS # (AUTO) 0.1 10^3/uL (0.0-0.1); BASOPHILS % (AUTO) 1 % (0-10); EOSINOPHILS # (AUTO) 0.6 10^3/uL (0.0-0.3); EOSINOPHILS % (AUTO) 10 % (0-10); HEMATOCRIT 36 % (40-54); HEMOGLOBIN 11.8 g/dL (13.3-17.7); LYMPHOCYTES % (AUTO) 18 % (12-44); MEAN CORPUSCULAR HEMOGLOBIN 27 pg (25-34); MEAN CORPUSCULAR HGB CONC 33 g/dL (32-36); MEAN CORPUSCULAR VOLUME 82 fL (80-99); MEAN PLATELET VOLUME 9.1 fL (9.0-12.2); MONOCYTES # (AUTO) 0.6 10^3/uL (0.0-1.0); MONOCYTES % (AUTO) 10 % (0-12); NEUTROPHILS # (AUTO) 3.5 10^3/uL (1.8-7.8); NEUTROPHILS % (AUTO) 61 % (42-75); PLATELET COUNT 361 10^3/uL (130-400); WHITE BLOOD COUNT 5.8 10^3/uL (4.3-11.0)
[2021-02-22 10:33] LABS: ALBUMIN 4.1 GM/DL (3.2-4.5); POTASSIUM 3.8 MMOL/L (3.6-5.0)
[2021-02-22 10:35] LABS: CALCIUM 9.4 MG/DL (8.5-10.1)
[2021-02-22 10:36] LABS: TOTAL PROTEIN 7.6 GM/DL (6.4-8.2)
[2021-02-22 10:38] LABS: BILIRUBIN,TOTAL 0.4 MG/DL (0.1-1.0); ERYTHROCYTE SEDIMENTATION RATE 17 MM/HR (0-30)
[2021-02-22 10:40] LABS: CREATININE SERUM 0.83 MG/DL (0.60-1.30)
[2021-02-23 09:00] VITALS: BP 128/77
[2021-02-23] MEDS: DAPTOMYCIN IV SCH ×2 (09:15)
[2021-02-23] MEDS: [UNRECOGNIZED DRUG - OTHER] IV SCH ×2 (09:15)
[2021-02-24] MEDS: [UNRECOGNIZED DRUG - OTHER] IV SCH ×2 (09:03)
[2021-02-24] MEDS: DAPTOMYCIN IV SCH ×2 (09:03)
[2021-02-24 09:50] VITALS: BP 149/78
[~2021-02-25] VITALS: Ht 187 cm; Wt 97.0 kg
[2021-02-25] MEDS: [UNRECOGNIZED DRUG - OTHER] IV SCH ×2 (09:14)
[2021-02-25] MEDS: DAPTOMYCIN IV SCH ×2 (09:14)
[2021-02-25 09:20] VITALS: BP 139/77
== END 2021-02-25 09:45 | disposition home or self-care (01) ==
LOC: SDC 07:56
PROVIDERS: ATTEND Hospitalist
DX: Z45.2 Encounter for adjustment and management of vascular access device (principal); T84.50XA Infection and inflammatory reaction due to unspecified internal joint prosthesis, initial encounter
CPT/HCPCS: 36415; 36592; 80053; 82550; 83690; 85007; 85025; 85027; 85652; 86141; 96365; 99211

== ENCOUNTER → 2021-03-12 | Outpatient (CLI) | payer MEDICARE, OTHER ==
[2021-03-12 09:06] LABS: BASOPHILS # (AUTO) 0.1 10^3/uL (0.0-0.1); BASOPHILS % (AUTO) 1 % (0-10); EOSINOPHILS # (AUTO) 0.6 10^3/uL (0.0-0.3); EOSINOPHILS % (AUTO) 11 % (0-10); HEMATOCRIT 39 % (40-54); HEMOGLOBIN 12.5 g/dL (13.3-17.7); LYMPHOCYTES # (AUTO) 1.3 10^3/uL (1.0-4.0); LYMPHOCYTES % (AUTO) 23 % (12-44); MEAN CORPUSCULAR HEMOGLOBIN 26 pg (25-34); MEAN CORPUSCULAR HGB CONC 32 g/dL (32-36); MEAN CORPUSCULAR VOLUME 81 fL (80-99); MEAN PLATELET VOLUME 8.8 fL (9.0-12.2); MONOCYTES # (AUTO) 0.6 10^3/uL (0.0-1.0); MONOCYTES % (AUTO) 10 % (0-12); NEUTROPHILS % (AUTO) 54 % (42-75); PLATELET COUNT 356 10^3/uL (130-400); WHITE BLOOD COUNT 5.6 10^3/uL (4.3-11.0)
[2021-03-12 09:36] LABS: ALBUMIN 4.4 GM/DL (3.2-4.5); BILIRUBIN,TOTAL 0.5 MG/DL (0.1-1.0); CREATININE SERUM 0.81 MG/DL (0.60-1.30); POTASSIUM 3.7 MMOL/L (3.6-5.0); TOTAL PROTEIN 7.9 GM/DL (6.4-8.2)
[2021-03-12 09:40] LABS: BAND NEUTROPHILS 0 %; BASOPHILS % (MANUAL) 0 %; EOSINOPHILS % (MANUAL) 9 %; LYMPHOCYTES % (MANUAL) 27 %; MONOCYTES % (MANUAL) 5 %; NEUTROPHILS % (MANUAL) 59 %
[2021-03-12 09:41] LABS: RBC MORPH NORMAL
[2021-03-12 09:46] LABS: ERYTHROCYTE SEDIMENTATION RATE 16 MM/HR (0-30)
== END ==
LOC: LAB 08:37
PROVIDERS: ATTEND Specialist
DX: T84.50XA Infection and inflammatory reaction due to unspecified internal joint prosthesis, initial encounter (principal)
CPT/HCPCS: 36415; 80053; 85007; 85027; 85652; 86141

== ENCOUNTER → 2021-03-22 | Outpatient (CLI) | payer MEDICARE, OTHER ==
--- NOTE | 2021-03-22 09:29 | Diagnostic Imaging Report ---
PROCEDURE: US Gallbladder. TECHNIQUE: Multiple real-time grayscale images were obtained over the right upper quadrant in various projections. INDICATION: Epigastric pain. FINDINGS: There is a 2 cm oval hypoechoic area posteriorly just beneath the diaphragm of the right lobe of the liver. Due to the position of this, it is difficult to evaluate well. This does not appear to be an anechoic cyst. Bile ducts are not dilated. Gallbladder appears normal with no gallstones or wall thickening. Common bile duct measures 4 mm. Pancreas is not well seen due to considerable bowel gas. Aorta and vena cava appear normal. Portal vein appears normal with Doppler sampling. Right kidney is normal measuring 12 x 5 x 4.4 cm. There is no ascites. Negative Matos's sign. IMPRESSION: 1. Question of a hypoechoic nodule in the subphrenic region right lobe of the liver. This was not present on previous CT scan of 10/27/2016. Would consider repeat CT scan with and without contrast utilizing liver protocol or MRI of the abdomen with gadolinium contrast for liver protocol. Dictated by: Dictated on workstation # [id number]
== END ==
LOC: RAD 08:00
PROVIDERS: ATTEND Surgery
DX: R10.13 Epigastric pain (principal)
CPT/HCPCS: 76705

== ENCOUNTER → 2021-03-23 | Outpatient (CLI) | payer MEDICARE, OTHER ==
[~2021-03-23] MED LIST changes: +CATHETER FLUSH 10 ML SYR IV PRN
--- NOTE | 2021-03-23 10:19 | Diagnostic Imaging Report ---
INDICATION: Epigastric pain. 5.5 mCi of Choletec was given IV. FINDINGS: There was prompt uptake of isotope in the liver. There is normal transit through the common duct into the small bowel. The gallbladder fills in a normal fashion. Following 60 minute imaging, Ensure was given. Another 60 minutes of imaging was performed. The ejection fraction was calculated to be 9%. IMPRESSION: 1. The cystic and common bile duct are patent. 2. There is hypokinesia of the gallbladder following fatty meal. Dictated by: Dictated on workstation # [id number]
== END ==
LOC: CARD 07:39
PROVIDERS: ATTEND Surgery
DX: K82.8 Other specified diseases of gallbladder (principal)
CPT/HCPCS: 78227; A9537

== ENCOUNTER → 2021-04-02 | Outpatient (CLI) | payer MEDICARE, OTHER ==
[~2021-04-02] MED LIST changes: +HOLD METFORMIN - RECEIVED CONTRAST 20 ML VIAL IV SCH; +IOHEXOL 350 MG/ML 100 ML (OMNIPAQUE 350) VIAL IV ONE; +NS 100 ML (IVPB) BAG IV ONE
--- NOTE | 2021-04-02 09:36 | Diagnostic Imaging Report ---
CLINICAL INDICATIONS: Follow-up 2 cm hypoechoic nodule in the subphrenic region right lobe of the liver seen on gallbladder ultrasound. EXAM: Axial CT scan of the abdomen and pelvis performed without and with 100 mL of Omnipaque 350 IV contrast. Portal venous phase and delayed phases at 6 minutes, 10 minutes and 15 minutes were obtained. Coronal and sagittal reformatted images were created. COMPARISON: Right upper quadrant ultrasound dated 03/22/2021. CT scan of the abdomen and pelvis with contrast dated 10/27/2016. FINDINGS: There is mild atelectasis involving the posterior right lung base. There is a very subtle circumscribed hypodense area involving the posterior upper aspect of the right lobe of the liver along the dome which correlates to the abnormality seen on ultrasound. This area is not well visualized on the noncontrast phase and becomes subtly more conspicuous on the portal venous and delayed phases. There is no peripheral enhancement and this lesion is homogenous. This area demonstrates Hounsfield units of 35 on the noncontrast phase. The rest of the liver sampled areas measures 58. Hounsfield units of this lesion is 45 on the portal venous phase, 57 on the 6 minute delayed phase, and 50 on the 10 minute delayed phase. This lesion is new compared to the prior CT scan. The remainder of the liver is unremarkable. The spleen, pancreas, gallbladder, and adrenal glands are unremarkable. There is a 3.9 cm x 3.7 cm x 4.1 cm irregularly shaped mass which demonstrates no significant enhancement. This lesion is seen involving the uncinate process region. This mass abuts the superior mesenteric artery and there is concern for a least 50% encasement. There is no significant stenosis of the SMA. The branching vessels in the region of this mass demonstrate narrowing as they pass through the mass. This mass is new compared to the prior CT scan. This area was obscured by bowel gas on the comparison ultrasound. There is no lymphadenopathy seen. The remainder of the vasculature in the region are patent. Both kidneys are unremarkable with no hydronephrosis or mass. There is no intra-abdominal free air or free fluid. There is right hip arthroplasty obscuring portions of the pelvis. The bladder is partially obscured, but shows no gross abnormality as visualized. There is a moderate amount of stool throughout the colon. The appendix is unremarkable. There is no intestinal obstruction. The abdominal aorta is non-aneurysmal. The extra-abdominal and extrapelvic soft tissue structures are unremarkable. There is lower lumbar spine facet arthropathy. There are degenerative spurs involving the lumbar spine. There is right curvature of the lumbar spine. IMPRESSION: 1.: There is interval development of a 4.1 cm ill-defined mass in the region of the uncinate process concerning for a pancreatic malignancy. There is concern for at least 50% encasement of the superior mesenteric artery. There is no lymphadenopathy. MRI of the pancreas with and without contrast is suggested for better evaluation. 2: Compared to the prior CT scan, there is interval development of a 2.0 cm very subtle low-density lesion in the posterior upper aspect of the right lobe of the liver near the dome which correlates to the abnormality on the ultrasound exam. Given the patient's pancreatic mass, metastatic disease should be excluded. MRI of the liver with and without contrast is suggested for further evaluation. 3: The remainder of this exam is unremarkable. Report faxed to Dr. Laurent at 9:31 AM 04/02/2021/cb Dictated by: Dictated on workstation # [id number]
== END ==
LOC: RAD 07:36
PROVIDERS: ATTEND Surgery
DX: K76.9 Liver disease, unspecified (principal)
CPT/HCPCS: 74178

== ENCOUNTER → 2021-04-08 | Outpatient (CLI) | payer MEDICARE, OTHER ==
[~2021-04-08] VITALS: Ht 182.9 cm
[~2021-04-08] MED LIST changes: -CATHETER FLUSH 10 ML SYR IV PRN; -HOLD METFORMIN - RECEIVED CONTRAST 20 ML VIAL IV SCH; -IOHEXOL 350 MG/ML 100 ML (OMNIPAQUE 350) VIAL IV ONE; +MULT-1136 PO; -NS 100 ML (IVPB) BAG IV ONE; +RIVA20TA PO
== END | disposition home or self-care (01) ==
LOC: PREOP 05:43
PROVIDERS: ATTEND Surgery
DX: Z01.818 Encounter for other preprocedural examination (principal)

== ENCOUNTER 2021-05-06 05:43 | Outpatient (CLI) | payer MEDICARE, OTHER ==
[~2021-05-06] VITALS: Ht 182.9 cm; Wt 96.4 kg
[2021-05-07] MEDS ORDERED: ACHD5005 PO (11:17)
== END 2021-05-06 09:47 | disposition home or self-care (01) ==
LOC: PREOP 05:43
PROVIDERS: ATTEND Surgery
DX: Z01.818 Encounter for other preprocedural examination (principal)

== ENCOUNTER 2021-05-07 09:01 | Day surgery (SDC) | payer MEDICARE, OTHER ==
[~2021-05-07] VITALS: Ht 182.9 cm; Wt 96.4 kg
[2021-05-07] VITALS (7 sets, daily range): BP systolic 134–163; BP diastolic 61–84
[2021-05-07] MEDS ORDERED: ceFAZolin 2 GM IV Premixed 50 ML IV ONE (09:15)
[2021-05-07] MEDS ORDERED: LACTATED RINGERS 1,000 ML IV PRN (09:15)
[2021-05-07] MEDS ORDERED: 0.9% SODIUM CHLORIDE PF INJ 20 ML VIAL ONE (09:39)
[2021-05-07] MEDS ORDERED: LIDOCAINE/EPI 1%-1:100,000 (XYLOCAINE) 20ML ONE (09:39)
[2021-05-07] MEDS ORDERED: HEParin (CENTRAL IV FLUSH) 500 UNIT/5 ML SYR ONE (09:39)
[2021-05-07] MEDS ORDERED: MIDAZOLAM 2 MG/2 ML (VERSED) VIAL ONE (09:40)
[2021-05-07] MEDS ORDERED: PROPOFOL INJECTION 50 ML IV ONE (09:40)
[2021-05-07] MEDS ORDERED: ACHD5005 PO (11:17)
--- NOTE | 2021-05-07 11:18 | Discharge Inst-Simple/Standard ---
Discharge Inst-Standard Discharge Medications New, Converted or Re-Newed RX: Transmitted to Pharmacy Patient Instructions/Follow Up Plan of Care/Instructions/FU: 2 weeks Anastasiia Activity as Tolerated: No Discharge Diet: Regular Diet Other Inst to Patient Follow up Appt: Make appointment for 2 week. Instructions: No lifting greater than 10 pounds. No strenuous activity. May shower in 24 hours, no tub bath or soaking. Use incentive spirometer at home as directed. No Smoking Skin/Wound Care: You have special glue over your incision that will fall off on it's own. Ice pack on 15 min off 30 min and repeat for first 48 hours. This will reduce swelling and discomfort. Symptoms to Report: Appetite Changes, Extremity Discoloration, Numbness/Tingling, Swelling Increased, Bleeding Excessive, Eyesight Changes, Pain Increased, Urine Color Change, Constipation(Persistent), Fever over 101 degree F, Pain/Pressure in chest, Urinating Difficulty, Cough Up/Vomit Blood, Heart Beat Irreg/Pounding, Pain/Pressure in jaw, Vaginal Bleeding Increase, Cramps in feet or legs, Lightheadedness, Pain/Pressure in shoulder, Diarrhea(Persistent), Memory Changes Suddenly, Questions/Concerns, Weight gain consecutive days, Dizziness/Fainting, Nausea/Vomiting, Shortness of Breath, Weight gain over 2 pounds If questions or concerns contact your physician Or seek help at emergency department. ANDREIA ERAZO DO May 07, 2021 11:18
--- NOTE | 2021-05-07 11:19 | Progress Note-Post Operative ---
Post-Operative Progess Note Surgeon (s)/Right Of Way Worker (s) Surgeon ANDREIA ERAZO DO Right Of Way Worker: na Pre-Operative Diagnosis pancreatic cancer Post-Operative Diagnosis same Procedure & Operative Findings Date of Procedure 05/07/21 Procedure Performed/Findings PROCEDURE: Right internal jugular port placement using ultrasound guidance. COMPLICATIONS: None. INDICATIONS: The patient is a 65 year old male with pancreatic cancer. Patient understands the risks and benefits of port placement and wished to proceed with the procedure. Consent was signed on the chart. PROCEDURE: The patient was taken to the operating suite, was prepped and draped in the sterile fashion. A surgical pause was performed. Ultrasound was used to locate the internal jugular vein. Once located anesthetic was infiltrated above it. Using micro-access kit, the right internal vein was accessed. Dark nonpulsatile blood was withdrawn. The wire was inserted. Fluoroscopy assured proper placement. The needle was removed. The micro-access dilator was advanced over the wire and the wire was removed. The regular wire was inserted and fluoroscopy assured proper placement. The wire was then secured. Local anesthetic was used to anesthetize from the neck for tunneling down to the right chest and for pocket creation. A 15 blade scalpel was used to make an incision over the right chest. Cautery was used to dissect down to the pectoral fascia. A pocket was created with blunt dissection. The dilator sheath was then advanced over the wire under fluoroscopy and the dilator and wire were removed. The Groshong catheter was inserted through the sheath and the sheath was then removed. The Groshong wire was removed. The catheter was then tunneled to the right chest pocket. Fluoroscopy was used to cut to length and this was then attached to the port which was then placed within the pocket. The port was then accessed without difficulty. It was then flushed with saline and then heparin. The subcutaneous tissues were then reapproximated using 3-0 Vicryl. The areas were then washed and dried. Skin Affix was placed over incision. The insertion point of the neck Skin Affix was placed over the incision. The patient tolerated the procedure well without complication and was taken to recovery room in stable condition. Chest x-ray is pending. Anesthesia Type mac c local Estimated Blood Loss Estimated blood loss (mL): minimal Specimens/Packing Specimens Removed ANDREIA Blackwood DO May 07, 2021 11:19
--- NOTE | 2021-05-07 11:44 | Diagnostic Imaging Report ---
INDICATION: Post port placement. TECHNIQUE: Single view chest 11:34 AM. CORRELATION STUDY: 07/23/2020 FINDINGS: Right IJ [id number] catheter has been placed. Tip projecting over the expected location of the mid SVC. Heart size, mediastinum and vasculature overall within normal limits. Obscuration left diaphragm may be owing to minimal effusion with atelectasis and/or infiltrate. IMPRESSION: 1. Interval placement right IJ Yahgrr-o-Evve catheter tip over the SVC. Dictated by: Dictated on workstation # [id number]
--- NOTE | 2021-05-07 16:58 | Diagnostic Imaging Report ---
INDICATION: Central line placement. FINDINGS: 21 seconds of fluoroscopy time was utilized during central venous catheter placement. IMPRESSION: Fluoroscopy utilized during catheter placement. Dictated on workstation # [id number]
== END 2021-05-07 13:16 ==
LOC: SDC 09:01
PROVIDERS: ATTEND Surgery
DX: C25.9 Malignant neoplasm of pancreas, unspecified (principal); I10 Essential (primary) hypertension; E78.00 Pure hypercholesterolemia, unspecified; Z79.01 Long term (current) use of anticoagulants; Z86.718 Personal history of other venous thrombosis and embolism; Z79.899 Other long term (current) drug therapy
CPT/HCPCS: 36561; 71045; 76000; 87081; C1788

== ENCOUNTER 2021-07-05 09:40 | Outpatient (RCR) | payer MEDICARE, OTHER ==
[2021-05-05 14:39] LABS: BASOPHILS # (AUTO) 0.1 10^3/uL (0.0-0.1); BASOPHILS % (AUTO) 1 % (0-10); EOSINOPHILS # (AUTO) 0.5 10^3/uL (0.0-0.3); EOSINOPHILS % (AUTO) 7 % (0-10); HEMATOCRIT 39 % (40-54); HEMOGLOBIN 12.8 g/dL (13.3-17.7); LYMPHOCYTES # (AUTO) 1.2 X 10^3 (1.0-4.0); LYMPHOCYTES % (AUTO) 19 % (12-44); MEAN CORPUSCULAR HEMOGLOBIN 26 pg (25-34); MEAN CORPUSCULAR HGB CONC 33 g/dL (32-36); MEAN CORPUSCULAR VOLUME 79 fL (80-99); MEAN PLATELET VOLUME 8.9 fL (9.0-12.2); MONOCYTES # (AUTO) 0.6 X 10^3 (0.0-1.0); MONOCYTES % (AUTO) 10 % (0-12); NEUTROPHILS % (AUTO) 62 % (42-75); PLATELET COUNT 364 10^3/uL (130-400); WHITE BLOOD COUNT 6.3 10^3/uL (4.3-11.0)
[2021-05-05 15:00] LABS: ALBUMIN 4.5 GM/DL (3.2-4.5); BILIRUBIN,TOTAL 0.4 MG/DL (0.1-1.0); CALCIUM 9.6 MG/DL (8.5-10.1); CREATININE SERUM 0.77 MG/DL (0.60-1.30); POTASSIUM 4.1 MMOL/L (3.6-5.0)
[2021-05-17 10:16] LABS: BASOPHILS % (AUTO) 0 % (0-10); EOSINOPHILS # (AUTO) 0.6 10^3/uL (0.0-0.3); EOSINOPHILS % (AUTO) 10 % (0-10); HEMATOCRIT 39 % (40-54); HEMOGLOBIN 12.6 g/dL (13.3-17.7); LYMPHOCYTES # (AUTO) 1.1 10^3/uL (1.0-4.0); LYMPHOCYTES % (AUTO) 19 % (12-44); MEAN CORPUSCULAR HEMOGLOBIN 25 pg (25-34); MEAN CORPUSCULAR HGB CONC 32 g/dL (32-36); MEAN CORPUSCULAR VOLUME 78 fL (80-99); MONOCYTES # (AUTO) 0.4 10^3/uL (0.0-1.0); MONOCYTES % (AUTO) 7 % (0-12); NEUTROPHILS # (AUTO) 3.6 10^3/uL (1.8-7.8); NEUTROPHILS % (AUTO) 63 % (42-75); PLATELET COUNT 313 10^3/uL (130-400); WHITE BLOOD COUNT 5.7 10^3/uL (4.3-11.0)
[2021-05-17 10:34] LABS: CALCIUM 9.4 MG/DL (8.5-10.1); CREATININE SERUM 0.84 MG/DL (0.60-1.30); POTASSIUM 3.9 MMOL/L (3.6-5.0)
[2021-05-24 10:16] LABS: BASOPHILS # (AUTO) 0.1 10^3/uL (0.0-0.1); BASOPHILS % (AUTO) 1 % (0-10); EOSINOPHILS # (AUTO) 0.3 10^3/uL (0.0-0.3); EOSINOPHILS % (AUTO) 7 % (0-10); HEMATOCRIT 39 % (40-54); HEMOGLOBIN 12.4 g/dL (13.3-17.7); LYMPHOCYTES # (AUTO) 0.9 10^3/uL (1.0-4.0); LYMPHOCYTES % (AUTO) 18 % (12-44); MEAN CORPUSCULAR HEMOGLOBIN 25 pg (25-34); MEAN CORPUSCULAR HGB CONC 32 g/dL (32-36); MEAN CORPUSCULAR VOLUME 79 fL (80-99); MEAN PLATELET VOLUME 8.9 fL (9.0-12.2); MONOCYTES # (AUTO) 0.4 10^3/uL (0.0-1.0); MONOCYTES % (AUTO) 9 % (0-12); NEUTROPHILS # (AUTO) 3.2 10^3/uL (1.8-7.8); NEUTROPHILS % (AUTO) 65 % (42-75); PLATELET COUNT 305 10^3/uL (130-400)
[2021-05-24 10:44] LABS: ALBUMIN 4.2 GM/DL (3.2-4.5); BILIRUBIN,TOTAL 0.4 MG/DL (0.1-1.0); CALCIUM 9.4 MG/DL (8.5-10.1); CREATININE SERUM 0.75 MG/DL (0.60-1.30); MAGNESIUM 1.9 MG/DL (1.6-2.4); POTASSIUM 3.4 MMOL/L (3.6-5.0); TOTAL PROTEIN 7.4 GM/DL (6.4-8.2)
[2021-05-31 12:50] LABS: BASOPHILS % (AUTO) 1 % (0-10); EOSINOPHILS # (AUTO) 0.7 10^3/uL (0.0-0.3); EOSINOPHILS % (AUTO) 15 % (0-10); HEMATOCRIT 37 % (40-54); HEMOGLOBIN 12.1 g/dL (13.3-17.7); LYMPHOCYTES # (AUTO) 1.1 10^3/uL (1.0-4.0); LYMPHOCYTES % (AUTO) 23 % (12-44); MEAN CORPUSCULAR HEMOGLOBIN 26 pg (25-34); MEAN CORPUSCULAR HGB CONC 33 g/dL (32-36); MEAN CORPUSCULAR VOLUME 79 fL (80-99); MEAN PLATELET VOLUME 8.8 fL (9.0-12.2); MONOCYTES # (AUTO) 0.5 10^3/uL (0.0-1.0); MONOCYTES % (AUTO) 10 % (0-12); NEUTROPHILS # (AUTO) 2.4 10^3/uL (1.8-7.8); NEUTROPHILS % (AUTO) 50 % (42-75); PLATELET COUNT 264 10^3/uL (130-400); WHITE BLOOD COUNT 4.8 10^3/uL (4.3-11.0)
[2021-05-31 13:11] LABS: CALCIUM 9.1 MG/DL (8.5-10.1); CREATININE SERUM 0.72 MG/DL (0.60-1.30); POTASSIUM 3.5 MMOL/L (3.6-5.0)
[2021-06-07 10:31] LABS: BASOPHILS # (AUTO) 0.1 10^3/uL (0.0-0.1); BASOPHILS % (AUTO) 1 % (0-10); EOSINOPHILS # (AUTO) 0.5 10^3/uL (0.0-0.3); EOSINOPHILS % (AUTO) 9 % (0-10); HEMATOCRIT 37 % (40-54); HEMOGLOBIN 11.9 g/dL (13.3-17.7); LYMPHOCYTES # (AUTO) 1.1 10^3/uL (1.0-4.0); LYMPHOCYTES % (AUTO) 22 % (12-44); MEAN CORPUSCULAR HEMOGLOBIN 26 pg (25-34); MEAN CORPUSCULAR HGB CONC 32 g/dL (32-36); MEAN CORPUSCULAR VOLUME 81 fL (80-99); MONOCYTES # (AUTO) 0.5 10^3/uL (0.0-1.0); MONOCYTES % (AUTO) 11 % (0-12); NEUTROPHILS # (AUTO) 2.8 10^3/uL (1.8-7.8); NEUTROPHILS % (AUTO) 57 % (42-75); PLATELET COUNT 256 10^3/uL (130-400); WHITE BLOOD COUNT 4.9 10^3/uL (4.3-11.0)
[2021-06-07 11:07] LABS: BILIRUBIN,TOTAL 0.3 MG/DL (0.1-1.0); CALCIUM 9.1 MG/DL (8.5-10.1); CREATININE SERUM 0.77 MG/DL (0.60-1.30); MAGNESIUM 1.8 MG/DL (1.6-2.4); POTASSIUM 3.8 MMOL/L (3.6-5.0); TOTAL PROTEIN 7.2 GM/DL (6.4-8.2)
[2021-06-14 09:13] LABS: BASOPHILS # (AUTO) 0.1 10^3/uL (0.0-0.1); BASOPHILS % (AUTO) 1 % (0-10); EOSINOPHILS # (AUTO) 0.8 10^3/uL (0.0-0.3); EOSINOPHILS % (AUTO) 14 % (0-10); HEMATOCRIT 38 % (40-54); HEMOGLOBIN 12.4 g/dL (13.3-17.7); LYMPHOCYTES # (AUTO) 1.3 10^3/uL (1.0-4.0); LYMPHOCYTES % (AUTO) 24 % (12-44); MEAN CORPUSCULAR HEMOGLOBIN 27 pg (25-34); MEAN CORPUSCULAR HGB CONC 33 g/dL (32-36); MEAN CORPUSCULAR VOLUME 81 fL (80-99); MEAN PLATELET VOLUME 8.8 fL (9.0-12.2); MONOCYTES # (AUTO) 0.6 10^3/uL (0.0-1.0); MONOCYTES % (AUTO) 12 % (0-12); NEUTROPHILS # (AUTO) 2.6 10^3/uL (1.8-7.8); NEUTROPHILS % (AUTO) 48 % (42-75); PLATELET COUNT 289 10^3/uL (130-400); WHITE BLOOD COUNT 5.5 10^3/uL (4.3-11.0)
[2021-06-14 09:35] LABS: CALCIUM 9.2 MG/DL (8.5-10.1); CREATININE SERUM 0.78 MG/DL (0.60-1.30); POTASSIUM 3.7 MMOL/L (3.6-5.0)
[2021-06-21 10:00] LABS: BASOPHILS % (AUTO) 1 % (0-10); EOSINOPHILS # (AUTO) 0.4 10^3/uL (0.0-0.3); EOSINOPHILS % (AUTO) 7 % (0-10); HEMATOCRIT 36 % (40-54); HEMOGLOBIN 11.8 g/dL (13.3-17.7); LYMPHOCYTES # (AUTO) 1.1 10^3/uL (1.0-4.0); LYMPHOCYTES % (AUTO) 22 % (12-44); MEAN CORPUSCULAR HEMOGLOBIN 27 pg (25-34); MEAN CORPUSCULAR HGB CONC 33 g/dL (32-36); MEAN CORPUSCULAR VOLUME 81 fL (80-99); MEAN PLATELET VOLUME 8.9 fL (9.0-12.2); MONOCYTES # (AUTO) 0.6 10^3/uL (0.0-1.0); MONOCYTES % (AUTO) 13 % (0-12); NEUTROPHILS # (AUTO) 2.8 10^3/uL (1.8-7.8); NEUTROPHILS % (AUTO) 57 % (42-75); PLATELET COUNT 212 10^3/uL (130-400); WHITE BLOOD COUNT 4.9 10^3/uL (4.3-11.0)
[2021-06-21 10:19] LABS: ALBUMIN 3.9 GM/DL (3.2-4.5); BILIRUBIN,TOTAL 0.6 MG/DL (0.1-1.0); CREATININE SERUM 0.74 MG/DL (0.60-1.30); POTASSIUM 3.3 MMOL/L (3.6-5.0); TOTAL PROTEIN 6.9 GM/DL (6.4-8.2)
[2021-06-28 10:41] LABS: BASOPHILS % (AUTO) 1 % (0-10); EOSINOPHILS # (AUTO) 0.4 10^3/uL (0.0-0.3); EOSINOPHILS % (AUTO) 9 % (0-10); HEMATOCRIT 39 % (40-54); HEMOGLOBIN 12.4 g/dL (13.3-17.7); LYMPHOCYTES # (AUTO) 0.8 10^3/uL (1.0-4.0); LYMPHOCYTES % (AUTO) 17 % (12-44); MEAN CORPUSCULAR HEMOGLOBIN 26 pg (25-34); MEAN CORPUSCULAR HGB CONC 32 g/dL (32-36); MEAN CORPUSCULAR VOLUME 82 fL (80-99); MEAN PLATELET VOLUME 9.1 fL (9.0-12.2); MONOCYTES # (AUTO) 0.6 10^3/uL (0.0-1.0); MONOCYTES % (AUTO) 13 % (0-12); NEUTROPHILS # (AUTO) 2.7 10^3/uL (1.8-7.8); NEUTROPHILS % (AUTO) 60 % (42-75); PLATELET COUNT 235 10^3/uL (130-400); WHITE BLOOD COUNT 4.5 10^3/uL (4.3-11.0)
[2021-06-28 10:58] LABS: CALCIUM 9.2 MG/DL (8.5-10.1); CREATININE SERUM 0.76 MG/DL (0.60-1.30); POTASSIUM 3.4 MMOL/L (3.6-5.0)
[~2021-07-05] VITALS: Ht 182.9 cm; Wt 96.2 kg
[~2021-07-05 09:40] MED LIST changes: +ACHD5005 PO; +ATROPINE INJ 0.4 MG/ML SDV (CANCER CENTER) IV SCH; +D5W 500 ML IV (CANCER CTR) 500 ML IV SCH; +FOSAPREPITANT (CANCER CENTER) 150 MG in NS (IVPB) CANCER CENTER ONLY 150 ML IV SCH; +IRINOTECAN HCL 300 MG in D5W 250 ML IVPB (CANCER CTR) 250 ML IV SCH; +LEUCOVORIN CALCIUM 600 MG in D5W 250 ML IVPB (CANCER CTR) 250 ML IV SCH; +OXALIPLATIN 160 MG in D5W 250 ML IVPB (CANCER CTR) 250 ML IV SCH
[2021-07-05 10:14] LABS: BASOPHILS % (AUTO) 0 % (0-10); EOSINOPHILS % (AUTO) 0 % (0-10); HEMATOCRIT 37 % (40-54); LYMPHOCYTES # (AUTO) 0.8 10^3/uL (1.0-4.0); LYMPHOCYTES % (AUTO) 15 % (12-44); MEAN CORPUSCULAR HEMOGLOBIN 27 pg (25-34); MEAN CORPUSCULAR HGB CONC 32 g/dL (32-36); MEAN CORPUSCULAR VOLUME 83 fL (80-99); MEAN PLATELET VOLUME 8.9 fL (9.0-12.2); MONOCYTES # (AUTO) 0.6 10^3/uL (0.0-1.0); MONOCYTES % (AUTO) 11 % (0-12); NEUTROPHILS # (AUTO) 3.9 10^3/uL (1.8-7.8); NEUTROPHILS % (AUTO) 74 % (42-75); PLATELET COUNT 315 10^3/uL (130-400); WHITE BLOOD COUNT 5.3 10^3/uL (4.3-11.0)
[2021-07-05 10:34] LABS: ALBUMIN 4.1 GM/DL (3.2-4.5); BILIRUBIN,TOTAL 0.4 MG/DL (0.1-1.0); CALCIUM 9.1 MG/DL (8.5-10.1); CREATININE SERUM 0.75 MG/DL (0.60-1.30); POTASSIUM 3.2 MMOL/L (3.6-5.0); TOTAL PROTEIN 7.5 GM/DL (6.4-8.2)
== END 2021-07-09 | disposition home or self-care (01) ==
LOC: ONC 09:40
PROVIDERS: ATTEND Internal Medicine Hematology & Oncology
DX: Z51.11 Encounter for antineoplastic chemotherapy (principal); C25.9 Malignant neoplasm of pancreas, unspecified; C78.7 Secondary malignant neoplasm of liver and intrahepatic bile duct; I82.401 Acute embolism and thrombosis of unspecified deep veins of right lower extremity; I10 Essential (primary) hypertension; Z96.651 Presence of right artificial knee joint
CPT/HCPCS: 36591; 80048; 80053; 83735; 85025; 86301; 87324; 87449; 96367; 96368; 96375; 96413; 96416; 96417; 99213

== ENCOUNTER → 2021-07-14 | Outpatient (CLI) | payer MEDICARE, OTHER ==
[~2021-07-14] MED LIST changes: -ATROPINE INJ 0.4 MG/ML SDV (CANCER CENTER) IV SCH; -D5W 500 ML IV (CANCER CTR) 500 ML IV SCH; -FOSAPREPITANT (CANCER CENTER) 150 MG in NS (IVPB) CANCER CENTER ONLY 150 ML IV SCH; -IRINOTECAN HCL 300 MG in D5W 250 ML IVPB (CANCER CTR) 250 ML IV SCH; -LEUCOVORIN CALCIUM 600 MG in D5W 250 ML IVPB (CANCER CTR) 250 ML IV SCH; -OXALIPLATIN 160 MG in D5W 250 ML IVPB (CANCER CTR) 250 ML IV SCH
--- NOTE | 2021-07-14 12:23 | Diagnostic Imaging Report ---
INDICATION: Right knee pain 3 views of the right knee show postoperative changes from revised arthroplasty of the right knee. The prosthesis has been removed and replaced with bone cement. There is no acute fracture. There is no osteal lysis. IMPRESSION: Postsurgical changes from revised knee arthroplasty. No acute abnormality seen. Dictated by: Dictated on workstation # [id number]
== END ==
LOC: RAD 09:37
PROVIDERS: ATTEND Orthopaedic Surgery
DX: M25.561 Pain in right knee (principal); Z96.651 Presence of right artificial knee joint
CPT/HCPCS: 73562

== ENCOUNTER 2021-07-19 10:31 | Outpatient (RCR) | payer MEDICARE, OTHER ==
[2021-07-12 09:56] LABS: BASOPHILS % (AUTO) 1 % (0-10); EOSINOPHILS # (AUTO) 0.4 10^3/uL (0.0-0.3); EOSINOPHILS % (AUTO) 7 % (0-10); HEMATOCRIT 41 % (40-54); HEMOGLOBIN 13.1 g/dL (13.3-17.7); LYMPHOCYTES # (AUTO) 1.6 10^3/uL (1.0-4.0); LYMPHOCYTES % (AUTO) 28 % (12-44); MEAN CORPUSCULAR HEMOGLOBIN 27 pg (25-34); MEAN CORPUSCULAR HGB CONC 32 g/dL (32-36); MEAN CORPUSCULAR VOLUME 84 fL (80-99); MEAN PLATELET VOLUME 8.9 fL (9.0-12.2); MONOCYTES # (AUTO) 0.7 10^3/uL (0.0-1.0); MONOCYTES % (AUTO) 12 % (0-12); NEUTROPHILS # (AUTO) 2.8 10^3/uL (1.8-7.8); NEUTROPHILS % (AUTO) 51 % (42-75); PLATELET COUNT 304 10^3/uL (130-400); WHITE BLOOD COUNT 5.6 10^3/uL (4.3-11.0)
[2021-07-12 10:16] LABS: CALCIUM 9.3 MG/DL (8.5-10.1); CREATININE SERUM 0.78 MG/DL (0.60-1.30); POTASSIUM 3.8 MMOL/L (3.6-5.0)
[~2021-07-19 10:31] MED LIST changes: +ATROPINE INJ 0.4 MG/ML SDV (CANCER CENTER) IV SCH; +D5W 500 ML IV (CANCER CTR) 500 ML IV SCH; +FOSAPREPITANT (CANCER CENTER) 150 MG in NS (IVPB) CANCER CENTER ONLY 150 ML IV SCH; +IRINOTECAN HCL 300 MG in D5W 250 ML IVPB (CANCER CTR) 250 ML IV SCH; +LEUCOVORIN CALCIUM 600 MG in D5W 250 ML IVPB (CANCER CTR) 250 ML IV SCH; +OXALIPLATIN 160 MG in D5W 250 ML IVPB (CANCER CTR) 250 ML IV SCH
[2021-07-19 11:00] LABS: BASOPHILS # (AUTO) 0.1 10^3/uL (0.0-0.1); BASOPHILS % (AUTO) 2 % (0-10); EOSINOPHILS # (AUTO) 0.3 10^3/uL (0.0-0.3); EOSINOPHILS % (AUTO) 8 % (0-10); HEMATOCRIT 37 % (40-54); HEMOGLOBIN 11.9 g/dL (13.3-17.7); LYMPHOCYTES # (AUTO) 0.8 10^3/uL (1.0-4.0); LYMPHOCYTES % (AUTO) 25 % (12-44); MEAN CORPUSCULAR HEMOGLOBIN 27 pg (25-34); MEAN CORPUSCULAR HGB CONC 32 g/dL (32-36); MEAN CORPUSCULAR VOLUME 84 fL (80-99); MEAN PLATELET VOLUME 9.2 fL (9.0-12.2); MONOCYTES # (AUTO) 0.5 10^3/uL (0.0-1.0); MONOCYTES % (AUTO) 15 % (0-12); NEUTROPHILS # (AUTO) 1.6 10^3/uL (1.8-7.8); NEUTROPHILS % (AUTO) 50 % (42-75); PLATELET COUNT 218 10^3/uL (130-400); WHITE BLOOD COUNT 3.1 10^3/uL (4.3-11.0)
[2021-07-19 11:20] LABS: ALBUMIN 3.9 GM/DL (3.2-4.5); BILIRUBIN,TOTAL 0.4 MG/DL (0.1-1.0); CALCIUM 8.9 MG/DL (8.5-10.1); CREATININE SERUM 0.71 MG/DL (0.60-1.30); POTASSIUM 3.3 MMOL/L (3.6-5.0); TOTAL PROTEIN 6.8 GM/DL (6.4-8.2)
[2021-07-19] MEDS ORDERED: methylPREDNISolone 125 MG/2 ML (SOLU-MEDROL) CANCER CTR ONE (12:11)
[2021-07-19] MEDS ORDERED: diphenhydrAMINE 50 MG/ML INJ (CANCER CENTER) ONE (12:11)
== END 2021-08-09 | disposition home or self-care (01) ==
LOC: ONC 10:31
PROVIDERS: ATTEND Internal Medicine Hematology & Oncology
DX: Z51.11 Encounter for antineoplastic chemotherapy (principal); C25.9 Malignant neoplasm of pancreas, unspecified; C78.7 Secondary malignant neoplasm of liver and intrahepatic bile duct; I82.401 Acute embolism and thrombosis of unspecified deep veins of right lower extremity; I10 Essential (primary) hypertension; Z96.651 Presence of right artificial knee joint
CPT/HCPCS: 80048; 80053; 85025; 86301; 96367; 96375; 96413; 96415; 96417; 99213

== ENCOUNTER → 2021-07-22 | Outpatient (CLI) | payer MEDICARE, OTHER ==
[~2021-07-22] MED LIST changes: -ATROPINE INJ 0.4 MG/ML SDV (CANCER CENTER) IV SCH; -D5W 500 ML IV (CANCER CTR) 500 ML IV SCH; -FOSAPREPITANT (CANCER CENTER) 150 MG in NS (IVPB) CANCER CENTER ONLY 150 ML IV SCH; +GADOTERATE 0.5 MMOL/ML (CLARISCAN) 20 ML VIAL IV ONE; -IRINOTECAN HCL 300 MG in D5W 250 ML IVPB (CANCER CTR) 250 ML IV SCH; -LEUCOVORIN CALCIUM 600 MG in D5W 250 ML IVPB (CANCER CTR) 250 ML IV SCH; -OXALIPLATIN 160 MG in D5W 250 ML IVPB (CANCER CTR) 250 ML IV SCH
--- NOTE | 2021-07-22 14:58 | Diagnostic Imaging Report ---
EXAMINATION: MRI of the abdomen with and without contrast. TECHNIQUE: Multiplanar, multisequence MR images of the abdomen were obtained with and without intravenous contrast. HISTORY: MALIGNANT NEOPLASM OF PANCREAS COMPARISON: 04/02/2021 FINDINGS: Liver: There is diffuse loss of signal on out of phase images compatible with hepatic steatosis. There is a peripherally enhancing lesion within hepatic segment 6 which measures 1.4 cm (series 12 image 58). Gallbladder and Bile Ducts: There is no intrahepatic or extrahepatic bile duct dilation. There are no filling defects in the gallbladder or common bile duct. Pancreas: The previously seen pancreatic mass is only partially visualized on today's exam as the axial images do not entirely encompass the mass. No other visualized pancreatic mass or pancreatic ductal dilatation. Kidneys: There is no hydronephrosis. Adrenal glands: There is no adrenal gland nodule or thickening. Spleen: The spleen is normal in size without focal lesion. Lymph Nodes: There is no suspicious lymphadenopathy. Other: There is no ascites. IMPRESSION: 1. Poor visualization of the known pancreatic uncinate process mass compared to prior CT of 04/02/2021. 2. Suspicious peripherally enhancing lesion within hepatic segment 6 concerning for hepatic metastatic disease. Dictated by: Dictated on workstation # [id number]
== END ==
LOC: RAD 13:15
PROVIDERS: ATTEND Internal Medicine Hematology & Oncology
DX: C25.9 Malignant neoplasm of pancreas, unspecified (principal)
CPT/HCPCS: 74183

== ENCOUNTER → 2023-01-23 | Outpatient (CLI) | payer MEDICARE, OTHER ==
[~2023-01-23] MED LIST changes: -ASPI-789 PO; +ASPI1TAB23 PO; -GADOTERATE 0.5 MMOL/ML (CLARISCAN) 20 ML VIAL IV ONE; +IOHEXOL 350 MG/ML 100 ML (OMNIPAQUE 350) VIAL IV ONE; +NS 100 ML (IVPB) BAG IV ONE; -RIFA300C3 PO; +RIFA300C8 PO
--- NOTE | 2023-01-23 14:06 | Diagnostic Imaging Report ---
PROCEDURE: CT abdomen with contrast only. TECHNIQUE: Multiple contiguous axial images were obtained through the abdomen after the administration of intravenous contrast. Auto Exposure Controls were utilized during the CT exam to meet ALARA standards for radiation dose reduction. INDICATION: Pancreatic cancer with pain. COMPARISON: 04/02/2021. FINDINGS: A hypodense but solid irregular soft tissue mass inseparable from the lower pancreatic head at its uncinate process also becomes inseparable from the unobstructed transverse duodenum. There is tissue circumscribing the unobstructed superior mesenteric artery which appears encased by the malignant process. It is difficult to precisely measure the extent of the presumed pancreatic mass but it is approximately 4.2 x 2.2 cm, similar in size to the prior exam; however, involvement of the SMA and adjacent unobstructed duodenum is more pronounced. The stomach is nondilated. Today I cannot identify a liver mass. There is no bile duct dilatation. The adrenals are negative. There is some stranding of the peripancreatic fat which suggests an element of acute pancreatitis superimposed, correlate with relevant labs. The pancreatic neck, body, and tail are atrophic with mild ductal dilatation. No acute fluid collection. The kidneys are unobstructed. There is a normal nonfocal spleen size. IMPRESSION: 1. Ill-defined pancreatic uncinate process mass, similar in size to the comparison, with likely infiltration of the unobstructed duodenum as well as circumscribing the unobstructed SMA. Duodenal and SMA involvement has progressed. The overall size of the primary mass has not clearly changed. The distal pancreatic parenchymal atrophy and ductal dilatation have increased. Per 2. An element of acute pancreatitis could not be excluded but no pseudocyst or ascites. No bile duct dilatation. 3. No visible liver mass. Dictated by: Dictated on workstation # [id number]
== END ==
LOC: RAD 11:21
PROVIDERS: ATTEND Registered Nurse Critical Care Medicine
DX: C25.7 Malignant neoplasm of other parts of pancreas (principal); R19.4 Change in bowel habit; Z79.02 Long term (current) use of antithrombotics/antiplatelets; D84.821 Immunodeficiency due to drugs; L02.212 Cutaneous abscess of back [any part, except buttock and flank]; I74.9 Embolism and thrombosis of unspecified artery; I10 Essential (primary) hypertension; D84.9 Immunodeficiency, unspecified
CPT/HCPCS: 74160